=== PATIENT | male | born 1960 | race Caucasian/White ===

== ENCOUNTER → 2019-06-17 09:32 | Outpatient (CLI) | payer BC, SELFPAY ==
[2019-06-17 13:34] LABS: Alanine Aminotransferase 31 U/L (12-78); Albumin Level 4.1 gm/dL (3.4-5.0); Albumin/Globulin Ratio 1.3 (1.1-1.8); Alkaline Phosphatase 53 U/L (46-116); Anion Gap 12.9 mEq/L (5-15); Aspartate Amino Transferase 22 U/L (15-37); Bilirubin,Total 0.7 mg/dL (0.2-1.0); Blood Urea Nitrogen 23 mg/dL (7-18); Calcium 9.1 mg/dL (8.5-10.1); Carbon Dioxide 26 mmol/L (21.0-32.0); Chloride 103 mmol/L (98-107); Chol/HDL Ratio 3.4 (1-3.5); Cholesterol 202 mg/dL (140-200); Creatinine,Serum 0.78 mg/dL (0.70-1.30); Estimated Glomerular Filt Rate 103 ml/min (>60); GFR (African American) 124 ML/MIN (>60); Globulin 3.1 gm/dl (1.3-3.2); Glucose 80 mg/dL (74-106); HDL Cholesterol 60 mg/dL (27-67); LDL Cholesterol 131 mg/dL (0-130); Potassium 4.9 mmoL/L (3.5-5.1); Sodium 137 mmol/L (136-145); Total Protein,Serum 7.2 gm/dL (6.4-8.2); Triglycerides 57 mg/dL (30-200); VLDL Cholesterol 11 mg/dL (0-40)
== END ==
PROVIDERS: Visit Provider Nurse Practitioner Family
DX: Z00.00 Encounter for general adult medical examination without abnormal findings (principal); E78.5 Hyperlipidemia, unspecified
CPT/HCPCS: 36415; 80053; 80061

== ENCOUNTER → 2020-11-29 09:10 | Outpatient (CLI) | payer BC, SELFPAY ==
[2020-11-29 09:42] LABS: Basophils % 0.7 % (0.1-2.0); Eosinophils % 0.8 % (0.1-12.0); Hematocrit 49.1 % (42.0-52.0); Hemoglobin 16.4 g/dL (14.1-18.0); Lymphocytes # 1.9 K/mm3 (0.7-4.5); Lymphocytes % 37.4 % (10-50); Mean Corpuscular HGB Conc 33.5 g/dL (31.8-35.4); Mean Corpuscular Hemoglobin 30.7 pg (27.0-31.2); Mean Corpuscular Volume 91.6 fl (80-94); Mean Platelet Volume 9.3 fl (7.4-10.4); Monocytes # 0.4 K/mm3 (0.1-1.0); Monocytes % 7.2 % (1.7-9.3); Neutrophils # 2.8 K/mm3 (1.8-7.8); Neutrophils % 54.1 % (37.0-80.0); Platelet Count 185 K/mm3 (142-424); Red Blood Count 5.36 M/mm3 (4.60-6.20); Red Cell Distribution Width 13.7 % (11.5-17.5); White Blood Count 5.2 K/mm3 (4.8-10.8)
[2020-11-29 10:22] LABS: Alanine Aminotransferase 44 U/L (12-78); Albumin Level 4.8 g/dl (3.5-5.0); Albumin/Globulin Ratio 1.8 (1.1-1.8); Alkaline Phosphatase 62 U/L (38-126); Anion Gap 12.6 mEq/L (5-15); Aspartate Amino Transferase 38 U/L (17-59); Bilirubin,Total 0.7 mg/dl (0.2-1.3); Blood Urea Nitrogen 22 mg/dl (9-20); Carbon Dioxide 27 mmol/L (22.0-30.0); Chloride 104 mmol/L (98-107); Chol/HDL Ratio 2.6 (1-3.5); Cholesterol 136 mg/dl (140-200); Estimated Glomerular Filt Rate 99 ml/min (>60); GFR (African American) 120 ML/MIN (>60); Globulin 2.6 g/dL (1.3-3.2); Glucose 101 mg/dl (74-100); HDL Cholesterol 53 mg/dl (40-60); Potassium 5.6 mmoL/L (3.5-5.1); Sodium 138 mmol/L (136-145); Total Protein,Serum 7.4 g/dl (6.3-8.2); Triglycerides 65 mg/dl (30-150); VLDL Cholesterol 13 mg/dL (0-40)
[2020-11-29 10:53] LABS: Prostate Specific Ag Screen 1.1 ng/ml (0.0-4.0); Thyroid Stimulating Hormone 1.46 uIU/mL (0.465-4.68)
[2020-11-30 13:43] LABS: Testosterone,Total 220 ng/dL (264-916)
== END ==
PROVIDERS: Visit Provider Internal Medicine Adolescent Medicine
DX: E78.5 Hyperlipidemia, unspecified (principal); E29.1 Testicular hypofunction
CPT/HCPCS: 36415; 80053; 80061; 84403; 84443; 85025; G0103

== ENCOUNTER → 2020-12-17 14:01 | Outpatient (POV) | payer BC, SELFPAY | PROVIDERS: Visit Provider Dermatology | DX: Z00.00 Encounter for general adult medical examination without abnormal findings (principal) ==

== ENCOUNTER → 2021-01-11 09:30 | Outpatient (CLI) | payer BC, SELFPAY ==
[2021-01-11 12:12] LABS: Chloride 102 mmol/L (98-107); Potassium 5.4 mmoL/L (3.5-5.1); Sodium 137 mmol/L (136-145)
[2021-01-11 12:15] LABS: Anion Gap 13.4 mEq/L (5-15); Blood Urea Nitrogen 20 mg/dl (9-20); Calcium 9.9 mg/dl (8.4-10.2); Carbon Dioxide 27 mmol/L (22.0-30.0); Estimated Glomerular Filt Rate 87 ml/min (>60); GFR (African American) 105 ML/MIN (>60); Glucose 91 mg/dl (74-100)
== END ==
PROVIDERS: Visit Provider Internal Medicine Adolescent Medicine
DX: E87.5 Hyperkalemia (principal)
CPT/HCPCS: 36415; 80048

== ENCOUNTER → 2021-06-17 13:15 | Outpatient (POV) | payer BC, SELFPAY | PROVIDERS: Visit Provider Dermatology | DX: Z00.00 Encounter for general adult medical examination without abnormal findings (principal) ==

== ENCOUNTER → 2021-09-17 10:13 | Outpatient (CLI) | payer BC, SELFPAY | PROVIDERS: PCP Radiology Diagnostic Radiology; Visit Provider Nurse Practitioner | DX: U07.1 COVID-19 (principal) | CPT/HCPCS: C9803; U0003; U0005 ==

== ENCOUNTER → 2021-09-26 15:11 | Outpatient (CLI) | payer BC, SELFPAY | PROVIDERS: Visit Provider Nurse Practitioner | DX: U07.1 COVID-19 (principal) | CPT/HCPCS: C9803; U0003; U0005 ==

== ENCOUNTER → 2022-02-03 15:28 | Outpatient (POV) | payer BC, SELFPAY | PROVIDERS: Visit Provider Dermatology | DX: Z00.00 Encounter for general adult medical examination without abnormal findings (principal) ==

== ENCOUNTER 2022-05-27 13:39 | Emergency (ER) | payer BC, SELFPAY ==
[2022-05-27 13:46] VITALS: BP 186/117; PULSE 75; RESP 18; BMI 32.8
[2022-05-27 14:08] VITALS: BP 171/99; PULSE 75; RESP 18; TEMP 36.9; O2SAT 99; BMI 32.8
--- NOTE | 2022-05-27 14:15 | EXP.UTC ---
Discharge Plan Disposition Patient Disposition: Home, Self-Care Condition: Good Prescriptions Prescriptions: New methylprednisolone 4 mg Tablets,Dose Pack 4 mg PO DIRECTED Qty: 21 0RF diphenhydramine HCl 25 mg capsule 25 mg PO Q6HP PRN (Reason: Itching) Qty: 30 0RF triamcinolone acetonide 0.025 % cream 1 applic topical BID PRN (Reason: itching) Qty: 15 0RF Referrals Follow up/Referrals: Carlton Mcneil MD [Primary Care Provider] - See instructions Activity Restrictions/Add. Instructions Additional Instructions/Restrictions: Don't start the oral steroids until tomorrow. Don't put the topical steroids (triamcinolone) on your face or your groin. Follow up with your regular doctor. GO TO THE ER FOR ANY WORSENING SYMPTOMS OR CONCERNS Clinical Impressions Clinical Impression: Bee sting Qualifiers: Encounter type: initial encounter Injury intent: accidental or unintentional Qualified Code(s): T63.441A - Toxic effect of venom of bees, accidental (unintentional), initial encounter Instructions Patient Instructions: Insect Bites and Stings, DI for Insect Bites and Stings Discharge ED Provider: Tristan Dahl [facility] HPI General Stated complaint: reaction to bee sting Mode of Arrival: Ambulatory Source of Information: Patient Limitations: No Limitations Time Seen by Provider: 05/27/22 14:49 Description of Symptoms (Recalled from Triage Doc. by RN): Pt reports stung by a bee in R forearm lastnight. Swelling and redness noted. Pt reports has taken benadryl but no improvement in swelling in right arm. HEENT Symptoms (Recalled from RN notes): No Resp Symptoms (Recalled from RN notes): No Skin Symptoms (Recalled from RN notes): Yes MS Symptoms (Recalled from RN notes): No Functional Status (Recalled from RN notes): n/a History of Present Illness Provider Complaint: He is here because he was stung 3 times by wasps right before he came in. In the past when he was stung 5 times he had to have epinephrine administered due to allergic reaction. This time, he is having localized swelling and itching at the sites, but he denies any signs of allergic reaction. Related Data Previous Rx's Medication Instructions Recorded diphenhydramine HCl 25 mg capsule 25 mg PO Q6HP PRN Itching #30 caps 05/27/22 methylprednisolone 4 mg tablets in 4 mg PO DIRECTED #21 tabs 05/27/22 a dose pack triamcinolone acetonide 0.025 % 1 applic topical BID PRN itching 05/27/22 topical cream #15 grams Allergies Allergy/AdvReac Type Severity Reaction Status Date / Time No Known Allergies Allergy Verified 05/27/22 14:10 Worker's Comp Is this a Worker's Comp case?: No PFSH PFSH Social History Smoking Status: Never smoker alcohol intake: never current occupational status: employed Travel in the last 8 weeks: None ROS Obtained: Yes All systems reviewed & no additional complaints except as documented Constitutional Constitutional: Reports system reviewed and no additional complaints, except as documented, Denies chills and Denies fever(s) Eyes Eyes: Denies eye discharge ENT Ears, Nose, Mouth, and Throat: Denies dysphagia, Denies sore throat and Denies throat swelling Cardiovascular Cardiovascular: Denies chest pain and Denies dyspnea Respiratory Respiratory: Denies chest congestion, Denies cough and Denies dyspnea Gastrointestinal Gastrointestingal: Denies abdominal pain, constipation, diarrhea, dysphagia, nausea or vomiting Musculoskeletal Musculoskeletal: Denies arthralgias Integumentary/Breasts Skin/Breast: Reports redness and Reports rash Neurologic Neurologic: Denies paresthesias Allergic/Immunologic Allergic/Immunologic: Denies throat swelling Physical Exam General General appearance: alert and in no apparent distress Head Head exam: atraumatic, normocephalic and normal inspection Eye Eye exam: Present normal appearance, PERRL and EOMI ENT ENT
[2022-05-27 14:50] VITALS: BP 171/99; PULSE 75; RESP 18; TEMP 36.9
== END 2022-05-27 14:51 | disposition home or self-care (01) ==
LOC: ER 13:46 → UTC 13:47
PROVIDERS: Emergency Provider Nurse Practitioner Family; PCP Internal Medicine Adolescent Medicine
DX: T63.441A Toxic effect of venom of bees, accidental (unintentional), initial encounter (principal)
CPT/HCPCS: 96372; 99212; G0463

== ENCOUNTER 2022-10-03 01:35 | Observation (INO) | payer BC, SELFPAY ==
[2022-10-03] VITALS (8 sets, daily range): BP systolic 135–178; BP diastolic 78–101; PULSE 59–74; RESP 17–18; TEMP 36.6–36.8; O2SAT 94–98; BMI 33.6; BMI 35.8
--- NOTE | 2022-10-03 01:33 | ECG_ITS ---
APPROVED REPORT Exam: Resting ECG HR:72 bpm ECG Measurements Heart Rate 72 AXES LA 178 P 60 QRSd 126 QRS 23 QT 406 T 56 QTc 429 Conclusion SINUS RHYTHM Previously noted late r wave progression, but ow nl ecg UNCONFIRMED REPORT Electronically signed by : Carlton Mcneil MD 10/03/2022 16:20:27
--- NOTE | 2022-10-03 01:37 | PC.NURSE ---
Dr. Haines at
--- NOTE | 2022-10-03 01:50 | XR_ITS ---
PROCEDURE INFORMATION: Exam: XR Chest Exam date and time: 10/03/2022 1:51 AM Age: 62 years old Clinical indication: Pain; Chest pressure; Additional info: Cp TECHNIQUE: Imaging protocol: Radiologic exam of the chest. Views: 2 views. COMPARISON: CR CXR CHEST(2 VIEWS-NOT PORTABLE) 06/28/2016 9:05 PM FINDINGS: Lungs: Lung volumes are mildly diminished. There is minor stable elevation of the right hemidiaphragm. The lungs appear clear. No focal areas of consolidation. Pleural spaces: No pleural effusions or appreciable adenopathy. Negative for pneumothorax. Heart/Mediastinum: Cardiac silhouette and pulmonary vasculature are within range of normal. Calcified mediastinal lymph nodes indicate prior granulomatous disease. Bones/joints: There is no evidence of acute fracture. IMPRESSION: Negative for an acute cardiopulmonary abnormality. Stable chest radiograph.
[2022-10-03 01:58] LABS: Coronavirus 19, PCR Not Detected (NotDetected); Influenza A, PCR Not Detected (NotDetected); Influenza B, PCR Not Detected (NotDetected)
--- NOTE | 2022-10-03 01:59 | PC.NURSE ---
Pt gone to RAD via wheelchair
[2022-10-03 02:04] LABS: Basophils # 0.1 K/mm3 (0-0.2); Basophils % 1.4 % (0.1-2.0); Eosinophils # 0.1 K/mm3 (0.0-0.4); Eosinophils % 1.8 % (0.1-12.0); Hematocrit 46.2 % (42.0-52.0); Hemoglobin 15.2 g/dL (14.1-18.0); Lymphocytes # 2.5 K/mm3 (0.7-4.5); Lymphocytes % 35.4 % (10-50); Mean Corpuscular Hemoglobin 30.9 pg (27.0-31.2); Mean Corpuscular Volume 93.7 fl (80-94); Mean Platelet Volume 10.1 fl (7.4-10.4); Monocytes # 0.5 K/mm3 (0.1-1.0); Monocytes % 6.8 % (1.7-9.3); Neutrophils # 3.9 K/mm3 (1.8-7.8); Neutrophils % 54.6 % (37.0-80.0); Platelet Count 148 K/mm3 (142-424); Red Blood Count 4.93 M/mm3 (4.60-6.20); Red Cell Distribution Width 14.5 % (11.5-17.5); White Blood Count 7.1 K/mm3 (4.8-10.8)
[2022-10-03 02:13] LABS: Chloride 109 mmol/L (98-107)
[2022-10-03 02:14] LABS: Potassium 3.7 mmoL/L (3.5-5.1); Sodium 139 mmol/L (136-145)
[2022-10-03 02:17] LABS: Anion Gap 9.7 mEq/L (5-15); Blood Urea Nitrogen 24 mg/dl (9-20); Calcium 8.7 mg/dl (8.4-10.2); Carbon Dioxide 24 mmol/L (22.0-30.0); Creatinine Clearance Estimated 106 mL/min (50-200); Estimated Glomerular Filt Rate 86 ml/min (>60); GFR (African American) 104 ML/MIN (>60); Glucose 102 mg/dl (74-100)
--- NOTE | 2022-10-03 02:22 | [facility]H.EDCP ---
Discharge Plan Disposition Patient Disposition: Admitted as Observation Chief Complaint: Chest Pain Prescriptions Prescriptions: No Action atorvastatin 40 mg tablet 40 mg PO DAILY Label Comments: TAKE 1 TABLET BY MOUTH ONCE DAILY amlodipine 2.5 mg tablet 2.5 mg PO DAILY Label Comments: TAKE 1 TABLET BY MOUTH ONCE DAILY pantoprazole 40 mg tablet,delayed release (DR/EC) 40 mg PO DAILY Label Comments: TAKE 1 TABLET BY MOUTH ONCE DAILY lisinopril 30 mg tablet 90 mg PO DAILY Label Comments: TAKE 1 TABLET BY MOUTH ONCE DAILY Referrals Follow up/Referrals: Hector Nair MD [Primary Care Provider] - See instructions Clinical Impressions Clinical Impression: Chest pain, Angina at rest, Hypertension, Obesity (BMI 30-39.9) Discharge ED Provider: Corby Haines Chest Pain HPI General Chief Complaint: Chest Pain Stated Complaint: Chest Pain Time Seen by Provider: 10/03/22 02:22 Mode of Arrival: Ambulatory Source of Information: Patient, Spouse and Medical Record Limitations: No Limitations Description of Symptoms (Recalled from ER Triage Doc. by RN): pt reports that he has had intermitent chest tightness for the past 2 days. pt reports that it has been coming on more frequantly and lasting longer. the pt has a family hx of cardiac issures but states he has had none himself History of Present Illness HPI narrative: pt with progressive chest pain over the last 2 days with hx of htn and fh of ht dis complaint: chest pain indicative of cardiac Onset (ago): day(s) Duration: intermittent Activity at onset: during rest Pain location: left chest Severity: moderate Quality: tightness Risk Factors for CAD: Hypertension and Family Hx of CAD Treatments prior to or on arrival for Cardiac Chest Pain: none SUMEET Score for Non-Stemi Age of Patient: 60-69 years old Heart Rate: 50-69 bpm Systolic Blood Pressure: 160-199 mmHg Serum Creatinine: 0.80-1.19 mg/dl CHF [place] Class: I-No CHF Other Risk Factors: None Non-Stemi Risk Score: 78 Risk Stratification: 1-108 = Low Risk Related Data Home Medications Medication Instructions Recorded Confirmed amlodipine 2.5 mg tablet 2.5 mg PO DAILY Hypertension 10/03/22 10/03/22 atorvastatin 40 mg tablet 40 mg PO DAILY Cholesterol 10/03/22 10/03/22 lisinopril 30 mg tablet 90 mg PO DAILY Hypertension 10/03/22 10/03/22 pantoprazole 40 mg tablet,delayed 40 mg PO DAILY . 10/03/22 10/03/22 release Allergies Allergy/AdvReac Type Severity Reaction Status Date / Time No Known Allergies Allergy Verified 05/27/22 14:10 [facility] Disclaimer: The information contained in this section may have been updated after the patient was seen, as this information can be updated by other users. Social History (Updated 05/28/22 @ 22:42 by Tristan Dahl APRN) Smoking Status: Former smoker alcohol intake: never current occupational status: employed Travel in the last 8 weeks: None ROS Obtained: Yes All systems reviewed & no additional complaints except as documented Physical Exam General General appearance: alert Head Head exam: normocephalic Eye Eye exam: Present PERRL and EOMI ENT ENT exam: Present mucous membranes moist Neck Neck exam: Present trachea midline Respiratory Respiratory exam: Present normal lung sounds bilaterally; Absent respiratory distress Cardiovascular Cardiovascular exam: Present regular rate and systolic murmur Abdominal Exam Abdominal exam: Present soft Extremities Exam Extremities exam: Present full ROM Neurological Exam Neurological exam: Present alert, oriented X3 and CN II-XII intact Psychiatric Psychiatric exam: Present normal affect Skin Skin exam: Absent rash Medical Decision Making Medical Records Medical records reviewed: Yes I reviewed the patient's medical records. Thien Inquiry Pt receiving controlled substance: No Vital Signs: 10/03/22 01:35 10/03/22 02:14 Temperature 98
[2022-10-03 02:35] LABS: Troponin I < 0.01 ng/ml (0.00-0.034)
--- NOTE | 2022-10-03 02:37 | PC.NURSE ---
paged dr ramirez @ this time
--- NOTE | 2022-10-03 02:38 | PC.NURSE ---
naya on phone with dr ramirez
--- NOTE | 2022-10-03 02:40 | PC.NURSE ---
notified scalehouse attendant about pt admission
--- NOTE | 2022-10-03 02:55 | PC.NURSE ---
report called to Kailyn JESSICA. notified to Stay on trop schedule @5am and 8am
--- NOTE | 2022-10-03 03:31 | PC.NURSE ---
Pt arriced to floor via wheelchair @ 0321.
[2022-10-03 05:13] LABS: Basophils # 0.1 K/mm3 (0-0.2); Basophils % 0.8 % (0.1-2.0); Eosinophils # 0.1 K/mm3 (0.0-0.4); Eosinophils % 1.3 % (0.1-12.0); Hematocrit 44.3 % (42.0-52.0); Hemoglobin 14.8 g/dL (14.1-18.0); Lymphocytes # 1.9 K/mm3 (0.7-4.5); Lymphocytes % 27.4 % (10-50); Mean Corpuscular HGB Conc 33.5 g/dL (31.8-35.4); Mean Corpuscular Hemoglobin 31.1 pg (27.0-31.2); Mean Platelet Volume 10.8 fl (7.4-10.4); Monocytes # 0.4 K/mm3 (0.1-1.0); Monocytes % 5.5 % (1.7-9.3); Neutrophils # 4.6 K/mm3 (1.8-7.8); Platelet Count 135 K/mm3 (142-424); Red Blood Count 4.76 M/mm3 (4.60-6.20); Red Cell Distribution Width 14.4 % (11.5-17.5)
[2022-10-03 05:18] LABS: Chloride 110 mmol/L (98-107); Potassium 4.3 mmoL/L (3.5-5.1); Sodium 138 mmol/L (136-145)
[2022-10-03 05:21] LABS: Anion Gap 8.3 mEq/L (5-15); Blood Urea Nitrogen 23 mg/dl (9-20); Carbon Dioxide 24 mmol/L (22.0-30.0); Cholesterol 131 mg/dl (140-200); Creatinine Clearance Estimated 127 mL/min (50-200); Estimated Glomerular Filt Rate 99 ml/min (>60); GFR (African American) 119 ML/MIN (>60); Triglycerides 48 mg/dl (30-150); VLDL Cholesterol 10 mg/dL (0-40)
[2022-10-03 05:22] LABS: Calcium 8.6 mg/dl (8.4-10.2); Chol/HDL Ratio 2.6 (1-3.5); Glucose 105 mg/dl (74-100); HDL Cholesterol 50 mg/dl (40-60)
[2022-10-03 05:33] LABS: Direct LDL Cholesterol 52.62 mg/dL (100-129)
[2022-10-03 05:34] LABS: Troponin I < 0.01 ng/ml (0.00-0.034)
--- NOTE | 2022-10-03 08:35 | EXP.HPDC ---
General Admission date:: 10/03/22 Discharge date: 10/03/22 *Admission Date: 10/03/22 *Chief complaint: Chest pain *History of present illness: Mr. Yost is a 62 year old patient of [facility] who presented to [facility] ER last night complaining of chest pain/pressure off and on for the past few weeks. Symptoms are not related to exertion. He denies shortness of breath and lower extremity edema. He has noted his blood pressure has been high several times over the past few weeks. He currently takes Lisinopril and Amlodipine and has been compliant with his medication. He also has a history of hyperlipidemia and GERD. [facility] Disclaimer: The information contained in this section may have been updated after the patient was seen, as this information can be updated by other users. Medical History (Updated 10/03/22 @ 08:43 by Hector Nair MD) Allergic rhinitis Carpal tunnel syndrome Deviated septum GERD (gastroesophageal reflux disease) Hiatal hernia History of COVID-19 Hyperlipidemia Hypertension Kidney stones Testosterone deficiency Surgical History (Updated 10/03/22 @ 08:44 by Hector Nair MD) H/O colonoscopy Family History (Updated 10/03/22 @ 03:38 by Kailyn Lin RN) Family history of acute heart failure Family history of stroke Family history of hypertension Family history of diabetes mellitus type II Family history of myocardial infarction Family history of hyperlipidemia Social History (Updated 10/03/22 @ 03:38 by Kailyn Lin, RN) Smoking Status: Former smoker alcohol intake: never current occupational status: employed Travel in the last 8 weeks: None Review of Systems Constitutional Constitutional: Denies chills and Denies fever(s) Eyes Eyes: Denies change in vision ENT Ears, Nose, Mouth, and Throat: Denies dizziness and Denies dysphagia *Cardiovascular Cardiovascular: Reports as per HPI *Respiratory Respiratory: Denies cough *Gastrointestinal Gastrointestinal: Denies constipation and Denies dysphagia *Genitourinary Genitourinary: Denies difficulty urinating *Musculoskeletal Musculoskeletal: Denies arthralgias Integumentary/Breasts Skin/Breast: Denies rash *Neurologic Neurologic: Denies dizziness Exam Data for Last 24 hours Vital signs and Labs for Last 24 Hours: Temp Pulse Resp BP Pulse Ox 98.0 F 59 L 18 145/80 H 96 10/03/22 07:10 10/03/22 07:10 10/03/22 07:10 10/03/22 07:10 10/03/22 07:10 Laboratory Results - last 24 hr 10/03/22 01:44: SARS-CoV-2 (PCR) Not detected, Influenza A Untype (PCR) Not detected, Influenza Type B (PCR) Not detected 10/03/22 01:58: WBC 7.1, RBC 4.93, Hgb 15.2, Hct 46.2, MCV 93.7, MCH 30.9, MCHC 33.0, RDW 14.5, Plt Count 148, MPV 10.1, Neut % (Auto) 54.6, Lymph % (Auto) 35.4, [place] % (Auto) 6.8, Eos % (Auto) 1.8, Baso % (Auto) 1.4, Neut # (Auto) 3.9, Lymph # (Auto) 2.5, [place] # (Auto) 0.5, Eos # (Auto) 0.1, Baso # (Auto) 0.1 10/03/22 01:58: Sodium 139, Potassium 3.7, Chloride 109 H, Carbon Dioxide 24, Anion Gap 9.7, BUN 24 H, Creatinine 0.90, Estimated Creat Clear 106, Estimated GFR 86, Est GFR ( Amer) 104, Glucose 102 H, Calcium 8.7, Troponin I < 0.01 10/03/22 05:00: Sodium 138, Potassium 4.3, Chloride 110 H, Carbon Dioxide 24, Anion Gap 8.3, BUN 23 H, Creatinine 0.80, Estimated Creat Clear 127, Estimated GFR 99, Est GFR ( Amer) 119, Glucose 105 H, Calcium 8.6, Troponin I < 0.01, Triglycerides 48, Cholesterol 131 L, LDL Cholesterol Direct 52.62 L, VLDL Cholesterol 10, HDL Cholesterol 50, Cholesterol/HDL Ratio 2.6 10/03/22 05:00: WBC 7.0, RBC 4.76, Hgb 14.8, Hct 44.3, MCV 93.0, MCH 31.1, MCHC 33.5, RDW 14.4, Plt Count 135 L, MPV 10.8 H, Neut % (Auto) 65.0, Lymph % (Auto) 27.4, [place] % (Auto) 5.5, Eos % (Auto) 1.3, Baso % (Auto) 0.8, Neut # (Auto) 4.6, Lymph # (Auto) 1.9, [place] # (Auto) 0.4, Eos # (Auto) 0.1, Baso # (Auto) 0.1 I & O for Last 24 hours: Intake & Output 09/30/22 10/01/22 10/02/22 10/03/22 23:59 23:59
[2022-10-03 08:41] LABS: Troponin I < 0.01 ng/ml (0.00-0.034)
--- NOTE | 2022-10-03 09:55 | PC.NURSE ---
pt ambulated in hallway with tele monitoring in place. he did not require assistance. denied chest pain/tightness no c/o shortness of breath no changes noted on tele monitoring during or immediately after ambulation.
--- NOTE | 2022-10-05 13:02 | CARE MANAGER ---
Contacted patient related to hospital discharge. He did not have any changes to his medications or new prescriptions. He has made a follow up appointment with Dr. Nair and denies any questions or concerns. ARACELY Lazo
== END 2022-10-03 13:00 | disposition home or self-care (01) ==
LOC: ER 02:43 → 2ND 04:10
PROVIDERS: Admitting Provider Family Medicine; Emergency Provider Emergency Medicine; PCP Family Medicine; Visit Provider Family Medicine
DX: R07.9 Chest pain, unspecified (principal); I10 Essential (primary) hypertension; K21.9 Gastro-esophageal reflux disease without esophagitis; E78.5 Hyperlipidemia, unspecified; Z82.49 Family history of ischemic heart disease and other diseases of the circulatory system; Z86.16 Personal history of COVID-19; Z79.899 Other long term (current) drug therapy
CPT/HCPCS: 36415; 71046; 80048; 80061; 84484; 85025; 93005; 99285; C9803; G0378; U0003; U0005

== ENCOUNTER → 2022-10-21 15:15 | Outpatient (CLI) | payer SELFPAY ==
--- NOTE | 2022-10-21 15:21 | CT_ITS ---
FINAL REPORT CLINICAL HISTORY: SCREENING FINDINGS: CT CORONARY CALCIUM SCORE W/O TECHNIQUE: Thin-section axial images were obtained through the heart and coronary arteries per CT coronary calcium score protocol. This study was performed with techniques to keep radiation doses as low as reasonably achievable (ALARA). Individualized dose reduction techniques using automated exposure control or adjustment of mA and/or kV according to the patient's size were employed. FINDINGS: On the axial images, there is calcification predominantly within the left anterior descending artery and circumflex. This gives a coronary artery calcium score of 52 based on the Agatston scale. This coronary artery calcium score places the patient within the if 36th percentile based on age and gender. The heart size is normal. There is no pleural or pericardial effusion. Limited evaluation of the lungs reveal no suspicious nodule. IMPRESSION: Coronary artery calcium score 52 based on the Agatston scale placing the patient within the 36th percentile based on age and gender. Reviewed, Interpreted and Dictated by Cayden Bonilla MD Transcribed by Yomaira Nixon Authenticated and [facility]
== END ==
PROVIDERS: PCP Family Medicine; Visit Provider Family Medicine
DX: Z13.6 Encounter for screening for cardiovascular disorders (principal)
CPT/HCPCS: 75571

== ENCOUNTER 2023-09-13 10:26 | Emergency (ER) | payer BC, SELFPAY ==
[2023-09-13 11:30] VITALS: BP 167/85; PULSE 74; RESP 19; TEMP 36.7; O2SAT 99; BMI 35.3
--- NOTE | 2023-09-13 11:38 | ED_ITS ---
Discharge Plan Disposition Patient Disposition: Home, Self-Care Condition: Good Prescriptions Prescriptions: New benzonatate 100 mg capsule 100 mg PO TID PRN (Reason: cough) Qty: 30 0RF methylprednisolone [Medrol (Chandler)] 4 mg tablets,dose pack See Rx Instructions .Route .COMPLEX 6 Days Qty: 21 0RF Rx Instructions: taper pack; amoxicillin-pot clavulanate 875-125 mg Tablet 1 tab PO Q12H Qty: 20 0RF No Action cetirizine 10 mg tablet 10 mg PO DAILY Patient Comments: TAKE 1 TABLET BY MOUTH ONCE DAILY lisinopril 10 mg tablet 10 mg PO DAILY Patient Comments: TAKE 1 TABLET BY MOUTH AT BEDTIME atorvastatin 40 mg tablet 40 mg PO HS Patient Comments: TAKE 1 TABLET BY MOUTH ONCE DAILY amlodipine 2.5 mg tablet 2.5 mg PO DAILY Patient Comments: TAKE 1 TABLET BY MOUTH ONCE DAILY pantoprazole 40 mg tablet,delayed release (DR/EC) 40 mg PO DAILY Patient Comments: TAKE 1 TABLET BY MOUTH ONCE DAILY lisinopril 30 mg tablet 30 mg PO DAILY Patient Comments: TAKE 1 TABLET BY MOUTH ONCE DAILY Referrals Follow up/Referrals: Hector Nair MD [Primary Care Provider] - See instructions Activity Restrictions/Add. Instructions Additional Instructions/Restrictions: *Monitor Temp, Over the counter Motrin or Tylenol as directed/as needed Tylenol every 4 hours and Motrin every 6 hours (as long as your family doctor has told you that you can take it) for fever or pain. and straight to ER if unable to lower temp less than 101.0 after medication given *Warm salt water gargles may help to soothe the throat *Throat Lozenges? *Warm fluids like tea with honey may help to soothe the throat? *Sleep elevated *Humidifier/Vaporizer Take medication as prescribed Follow up IMMEDIATELY for new or worsening symptoms or no Noticeable improvement over the next 48-72 hours. 911 for difficulty breathing or swallo wing Clinical Impressions Clinical Impression: Sinusitis Qualifiers: Sinusitis location: unspecified location Chronicity: unspecified Qualified Code(s): J32.9 - Chronic sinusitis, unspecified Instructions Patient Instructions: Sinusitis, DI for Sinusitis Discharge ED Provider: Edel Watts [facility] HPI General Stated complaint: cough, congestion, ears popping Mode of Arrival: Ambulatory Source of Information: Patient Limitations: No Limitations Time Seen by Provider: 09/13/23 11:38 Description of Symptoms (Recalled from Triage Doc. by RN): PATIENT C/O DRY COUGH, CONGESTION, EARS POPPING AND NASAL CONGESTION X 1 WEEK HEENT Symptoms (Recalled from RN notes): Yes Resp Symptoms (Recalled from RN notes): Yes Skin Symptoms (Recalled from RN notes): No MS Symptoms (Recalled from RN notes): No Functional Status (Recalled from RN notes): WNL History of Present Illness Provider Complaint: Patient states that he thinks he has a sinus infection States that he has been having sinus pain and pressure, scratchy throat, drainage in the back of his throat, cough and ears popping like he has fluid in it so he came in to get checked Related Data Home Medications Medication Instructions Recorded Confirmed amlodipine 2.5 mg tablet 2.5 mg PO DAILY Hypertension 10/03/22 09/13/23 atorvastatin 40 mg tablet 40 mg PO HS Cholesterol 10/03/22 09/13/23 lisinopril 30 mg tablet 30 mg PO DAILY Hypertension 10/03/22 09/13/23 pantoprazole 40 mg tablet,delayed 40 mg PO DAILY 10/03/22 09/13/23 release cetirizine 10 mg tablet 10 mg PO DAILY 09/13/23 09/13/23 lisinopril 10 mg tablet 10 mg PO DAILY 09/13/23 09/13/23 Previous Rx's Medication Instructions Recorded amoxicillin 875 mg-potassium 1 tab PO Q12H #20 tabs 09/13/23 clavulanate 125 mg tablet benzonatate 100 mg capsule 100 mg PO TID PRN cough #30 caps 09/13/23 methylprednisolone 4 mg tablets in See Rx Instructions .Route 09/13/23 a dose pack (Medrol (Chandler)) .COMPLEX 6 days #21 tabs Allergies Allergy/AdvReac Type Severity Reaction Status Date / Time No Known Allergies Allergy Verified 05/27/22 14:10 Worker's Comp Is this a Worker's Comp case?: No [facility] Disclaimer: The information contained in this section may have been updated after the patient was seen, as this information can be updated by other users. Medical History (Updated 01/01/24 @ 11:43 by Edel Watts APRN) Allergic rhinitis Carpal tunnel syndrome Deviated septum GERD (gastroesophageal reflux disease) Hiatal hernia History of COVID-19 Hyperlipidemia Hypertension Kidney stones Testosterone deficiency Surgical History (Updated 10/03/22 @ 08:44 by Hector Nair MD) H/O colonoscopy Family History (Updated 10/03/22 @ 03:38 by Kailyn Lin, RN) Other Family history of acute heart failure Family history of diabetes mellitus type II Family history of hyperlipidemia Family history of hypertension Family history of myocardial infarction Family history of stroke Social History (Updated 10/03/22 @ 03:38 by Kailyn Lin, RN) Smoking Status: Former smoker alcohol intake: never current occupational status: employed Travel in the last 8 weeks: None ROS Obtained: Yes All systems reviewed & no additional complaints except as documented and Yes Systems reviewed as appropriate & no additional complaints except as documented Constitutional Constitutional: Reports system reviewed and no additional complaints, except as documented, Reports as per HPI and Reports headache(s) ENT Ears, Nose, Mouth, and Throat: Reports system reviewed and no additional complaints, except as documented, Reports as per HPI, Reports otalgia, Reports headache(s), Reports sinus pain and Reports sinus pressure Cardiovascular Cardiovascular: Reports system reviewed and no additional complaints, except as documented and Reports as per HPI Respiratory Respiratory: Reports system reviewed and no additional complaints, except as documented, Reports as per HPI, Denies shortness of breath, Denies chest congestion, Reports cough and Denies wheezing Gastrointestinal Gastrointestingal: Reports system reviewed and no additional complaints, except as documented and as per HPI Neurologic Neurologic: Reports headache(s) Allergic/Immunologic Allergic/Immunologic: Denies wheezing Physical Exam General General appearance: alert and in no apparent distress ENT ENT exam: Present mucous membranes moist Expanded ENT Exam TM/Canal exam: Bilateral TM: bulging Nose exam: Present sinus tenderness Throat exam: Present other (Pharyngeal erythema noted with PND) Chest Chest inspection: Present normal inspection and symmetric chest wall rise Respiratory Respiratory exam: Present normal lung sounds bilaterally; Absent respiratory distress or wheezes Cardiovascular Cardiovascular exam: Present regular rate, normal rhythm and normal heart sounds Abdominal Exam Abdominal exam: Present soft and normal bowel sounds; Absent distention or tenderness Neurological Exam Neurological exam: Present alert, oriented X3 and normal gait Medical Decision Making Thien Inquiry Pt receiving controlled substance: No Thien was queried for this patient: No Vital Signs: 09/13/23 11:30 Temperature 98.0 F Temperature Source Oral Pulse Rate [Left Brachial] 74 Respiratory Rate 19 Blood Pressure [Left Arm] 167/85 H Blood Pressure Mean [Left Arm] 112 Blood Pressure Source [Left Arm] Automatic Cuff Blood Pressure Position [Left Arm] Sitting 02 Sat by Pulse Oximetry 99 Oxygen Delivery Method Room Air
[2023-09-13 12:00] VITALS: BP 167/85; PULSE 74; RESP 19; TEMP 36.7; O2SAT 99
== END 2023-09-13 12:02 | disposition home or self-care (01) ==
PROVIDERS: Emergency Provider Nurse Practitioner; PCP Family Medicine
DX: J01.90 Acute sinusitis, unspecified (principal); R05.9 Cough, unspecified; H92.03 Otalgia, bilateral; R07.0 Pain in throat; R09.82 Postnasal drip; K21.9 Gastro-esophageal reflux disease without esophagitis; I10 Essential (primary) hypertension; E78.5 Hyperlipidemia, unspecified; J30.9 Allergic rhinitis, unspecified
CPT/HCPCS: 99212; 99214; G0463

== ENCOUNTER 2024-09-10 08:00 | Emergency (ER) | payer BC, SELFPAY ==
[2024-09-10 08:09] VITALS: BP 153/97; PULSE 68; RESP 18; TEMP 37.1; O2SAT 99; BMI 36.5
--- NOTE | 2024-09-10 08:46 | ED_ITS ---
Discharge Plan Disposition Patient Disposition: Home, Self-Care Condition: Good Prescriptions Prescriptions: New prednisone 20 mg tablet 20 mg PO BID 4 Days Qty: 8 0RF benzonatate 100 mg capsule 100 mg PO TIDP PRN (Reason: Cough) Qty: 30 0RF cefdinir 300 mg capsule 300 mg PO BID Qty: 20 0RF No Action amlodipine 5 mg tablet 5 mg PO DAILY Patient Comments: TAKE 1 TABLET BY MOUTH ONCE DAILY FOR 90 DAYS hydrochlorothiazide 12.5 mg capsule 12.5 mg PO DAILY Patient Comments: TAKE 1 CAPSULE BY MOUTH ONCE DAILY IN THE MORNING FOR 90 DAYS cetirizine 10 mg tablet 10 mg PO DAILY Patient Comments: TAKE 1 TABLET BY MOUTH ONCE DAILY lisinopril 10 mg tablet 10 mg PO DAILY Patient Comments: TAKE 1 TABLET BY MOUTH AT BEDTIME atorvastatin 40 mg tablet 40 mg PO HS Patient Comments: TAKE 1 TABLET BY MOUTH ONCE DAILY pantoprazole 40 mg tablet,delayed release (DR/EC) 40 mg PO DAILY Patient Comments: TAKE 1 TABLET BY MOUTH ONCE DAILY lisinopril 30 mg tablet 30 mg PO DAILY Patient Comments: TAKE 1 TABLET BY MOUTH ONCE DAILY Referrals Follow up/Referrals: Hector Nair MD [Primary Care Provider] - See instructions Activity Restrictions/Add. Instructions Additional Instructions/Restrictions: Drink plenty of fluids. Take tylenol for pain or fever. Take the medications as directed. Follow up with your regular doctor. GO TO THE ER FOR ANY WORSENING SYMPTOMS Clinical Impressions Clinical Impression: Acute bronchitis Instructions Patient Instructions: DI for Acute Bronchitis Print Language Print Language: Mongolian Discharge ED Provider: Tristan Dahl [facility] General Stated complaint: cough lung burning feeling Mode of Arrival: Ambulatory Source of Information: Patient Time Seen by Provider: 09/10/24 08:34 Description of Symptoms (Recalled from Triage Doc. by RN): cough with burning sensation in chest, fever a few days ago HEENT Symptoms (Recalled from RN notes): No Resp Symptoms (Recalled from RN notes): Yes Skin Symptoms (Recalled from RN notes): No MS Symptoms (Recalled from RN notes): No Functional Status (Recalled from RN notes): wnl Related Data Home Medications ?Medication ?Instructions ?Recorded ?Confirmed atorvastatin 40 mg tablet 40 mg PO HS Cholesterol 10/03/22 09/10/24 lisinopril 30 mg tablet 30 mg PO DAILY Hypertension 10/03/22 09/10/24 pantoprazole 40 mg tablet,delayed 40 mg PO DAILY 10/03/22 09/10/24 release cetirizine 10 mg tablet 10 mg PO DAILY 09/13/23 09/10/24 lisinopril 10 mg tablet 10 mg PO DAILY 09/13/23 09/13/23 amlodipine 5 mg tablet 5 mg PO DAILY 03/30/24 09/10/24 hydrochlorothiazide 12.5 mg capsule 12.5 mg PO DAILY 03/30/24 09/10/24 Previous Rx's ?Medication ?Instructions ?Recorded benzonatate 100 mg capsule 100 mg PO TIDP PRN Cough #30 caps 09/10/24 cefdinir 300 mg capsule 300 mg PO BID #20 caps 09/10/24 prednisone 20 mg tablet 20 mg PO BID 4 days #8 tabs 09/10/24 Allergies Allergy/AdvReac Type Severity Reaction Status Date / Time No Known Allergies Allergy Verified 03/30/24 09:05 Worker's Comp Is this a Worker's Comp case?: No [facility] Disclaimer: The information contained in this section may have been updated after the patient was seen, as this information can be updated by other users. Medical History (Updated 09/10/24 @ 09:01 by Tristan Dahl APRN) Testosterone deficiency Kidney stones Allergic rhinitis GERD (gastroesophageal reflux disease) Hypertension History of COVID-19 Carpal tunnel syndrome Hiatal hernia Hyperlipidemia Deviated septum Surgical History (Updated 03/30/24 @ 09:05 by Jacque Harden) History of carpal tunnel repair H/O colonoscopy Family History Other Family history of acute heart failure Family history of diabetes mellitus type II Family history of hyperlipidemia Family history of hypertension Family history of myocardial infarction Family history of stroke Social History Smoking Status: Former smoker alcohol intake: never current occupational status: employed Travel in the last 8 weeks: None Have you lived/traveled outside US in past 30 days?: No Contact w/someone who lives/traveled outside US past 30 days?: No Exposure to someone with infectious disease in past 14 days?: No Do you have a fever (greater than 100.4 F or 38 C)?: No Have you tested positive for COVID-19: No Exposed to someone with COVID-19 in past 14 days?: No Do you have a sore throat?: No Do you have a cough?: Yes Do you have any weakness?: No Do you have any diarrhea?: No Are you experiencing any unusual bleeding?: No Do you have any muscle aches/pain?: No Do you have any abdominal pain?: No Are you experiencing loss of taste or smell?: No ROS Obtained: Yes All systems reviewed & no additional complaints except as documented Constitutional Constitutional: Reports poor appetite Eyes Eyes: Reports system reviewed and no additional complaints, except as documented ENT Ears, Nose, Mouth, and Throat: Reports as per HPI Cardiovascular Cardiovascular: Reports system reviewed and no additional complaints, except as documented and Denies chest pain Respiratory Respiratory: Denies shortness of breath, Reports chest congestion, Reports cough, Denies stridor and Denies wheezing Gastrointestinal Gastrointestingal: Reports system reviewed and no additional complaints, except as documented; Denies abdominal pain, diarrhea or vomiting Musculoskeletal Musculoskeletal: Reports system reviewed and no additional complaints, except as documented and Denies arthralgias Integumentary/Breasts Skin/Breast: Reports system reviewed and no additional complaints, except as documented and Denies rash Neurologic Neurologic: Denies paresthesias Allergic/Immunologic Allergic/Immunologic: Denies wheezing Physical Exam General General appearance: alert and in no apparent distress Eye Eye exam: Present normal appearance, PERRL and EOMI ENT ENT exam: Present mucous membranes moist and normal external ear exam Expanded ENT Exam External ear exam: Present normal external inspection TM/Canal exam: Bilateral TM: erythema and bulging Nose exam: Absent sinus tenderness Nasal speculum exam: Bilateral: normal Mouth exam: Present normal external inspection; Absent drooling Teeth exam: Present normal inspection Throat exam: Present tonsillar erythema and tonsillomegaly Neck Neck exam: Present normal inspection, full ROM and trachea midline; Absent tenderness, lymphadenopathy or thyromegaly Chest Chest inspection: Present normal inspection and symmetric chest wall rise; Absent tenderness or rash Respiratory Respiratory exam: Present normal lung sounds bilaterally; Absent respiratory distress, wheezes, stridor or accessory muscle use Cardiovascular Cardiovascular exam: Present regular rate, normal rhythm and normal heart sounds Abdominal Exam Abdominal exam: Present soft; Absent distention, tenderness, guarding, rebound or rigidity Extremities Exam Extremities exam: Present normal inspection, full ROM and normal capillary refill; Absent tenderness or calf tenderness Back Exam Back exam: Present normal inspection and full ROM; Absent tenderness Neurological Exam Neurological exam: Present alert and oriented X3 Psychiatric Psychiatric exam: Present normal affect and normal mood Skin Skin exam: Present warm, dry, intact and normal color Lymphatic Lymphatic Findings: no adenopathy Medical Decision Making Medical Records Medical records reviewed: No I reviewed the patient's medical records. Screening: Per USPSTF and CDC recommendations, given the prevalence of disease in our region, it is our hospital?s policy to screen for HIV and viral Hepatitis for all patients aged 18 and over and those with ongoing risk factors. Thien Inquiry Pt receiving controlled substance: No Vital Signs: 09/10/24 08:09 Temperature 98.8 F Temperature Source Oral Pulse Rate [Left Radial] 68 Respiratory Rate 18 Blood Pressure [Left Arm] 153/97 H Blood Pressure Mean [Left Arm] 115 02 Sat by Pulse Oximetry 99 Lab Data Lab results reviewed: Yes I reviewed the patient's lab results.
[2024-09-10 09:01] LABS: UTC Strep Screen (Rapid) Negative (Negative)
[2024-09-10 09:06] VITALS: BP 153/97; PULSE 68; RESP 18; TEMP 37.1
== END 2024-09-10 09:08 | disposition home or self-care (01) ==
PROVIDERS: Emergency Provider Nurse Practitioner Family; PCP Family Medicine
DX: J40 Bronchitis, not specified as acute or chronic (principal); R50.9 Fever, unspecified; R05.9 Cough, unspecified; R07.89 Other chest pain
CPT/HCPCS: 87880; 99212; G0381

== ENCOUNTER 2024-12-01 08:59 | Outpatient (CLI) | payer BC, SELFPAY ==
--- NOTE | 2024-12-01 08:59 | CT_ITS ---
APPROVED REPORT Dentistry Teacher: CLINICAL INDICATION Chest Pain TECHNIQUE Image Acquisition: A 128 slice MDCT scanner (Recommendoa View) was used for data acquisition. A noncontrast coronary calcium scan was performed. A CT attenuation threshold of 130 Hounsfield units (HU) was used for the detection of calcium in contiguous voxels of 1 sq mm in area to be counted as individual lesions. Bolus tracking in the ascending aorta with a threshold of 180 HU was performed. Immediately afterwards, ECG synchronized cardiac CT was then performed from the cardiac base to apex using retrospective gating with ECG tube current modulation. A total of 85 mL of Isovue 370 mg/mL contrast medium was administered at 5 mL/sec followed by a saline flush using a biphasic injection protocol. A tube voltage of 120 KVp was used. The patient received the following medications prior to the cardiac CT. 0.8 mg of sublingual nitroglycerin The average heart rate at the time of acquisition was 59 bpm and regular. Image Reconstruction Transaxial images were reconstructed at 0.67 mm slide thickness. Data was reviewed interactively on an advanced workstation capable of 2 and 3-dimensional displays in all conventional reconstruction formats, including multiplanar reformations, maximum intensity projections, curved multiplanar reformations, and volume rendered reconstructions. When applicable, selected routine images describing the relevant coronary anatomy and pathology were saved and sent to PACS. Complications None Technical Quality Overall image quality was good. Coronary artery opacification was adequate. Total DLP (Dose-Length Product) is 1839.6 mGy-cm. The reported value represents the total of one or more individual components during the CT acquisition of this date and at this time, and as such, the same value may appear in more than one CT report depending on the interpreting/reporting physicians. COMPARISON None FINDINGS CT Coronary Calcium Scoring LMA (Left Main Artery) = 19 LAD (Left Anterior Descending) = 68 LCX (Left Coronary Circumflex) = 16 RCA (Right Coronary Artery) = 49 Total Calcium Score = 152 using the AJ-130 method. The observed calcium score of 152 is at 69th percentile for subjects of the same age, sex, and race/ethnicity. The interpretation of the calcium heart score is based on the following continuum*: 0 = no calcified plaque detected (risk of coronary artery disease is very low ??? less than 5%) 1-10 = calcium detected in extremely minimal levels (risk of coronary diseases is still low ??? less than 10%) 11-100 = mild levels of plaque detected with certainty (mild or minimal narrowing of heart arteries is likely) 101-400 = definite,at least moderate levels of plaque detected (relatively high risk of a heart attack within 3-5 years) >401-999 = extensive levels of plaque detected (high risk of heart attack, high levels of vascular disease are present, high likelihood of at least one significant coronary narrowing) *The calcium heart score quantifies the burden of coronary calcification/plaque in the coronary arteries. The calcium heart score is not able to evaluate the presence or burden of non-calcified (i.e. soft) plaque. Coronary CT Angiography The coronary arterial system is left dominant. Quantitative Stenosis Grading: Left Main (LM): The left main originates normally from the left sinus of Valsalva. The LM bifurcates into the left anterior descending artery and left circumflex artery. There is mixed calcified/noncalcified plaque in the distal LM segment with < 25% luminal stenosis. Left Anterior Descending (LAD) and Diagonal Branches: The LAD gives off 2 diagonal branch(es). There is mixed calcified/noncalcified plaque in the proximal and mid LAD segments, with presence of a noncalcified plaque in the mid LAD segment up to 50-70% luminal stenosis immediately distal to the first diagonal branch. There is no evidence of LAD-myocardial bridge. Left Circumflex (LCX) and Obtuse Marginals (OM): The LCX gives off 1 Obtuse Marginal (OM) branch(es). There is mixed calcified/noncalcified plaque in the proximal LCx, with < 25% luminal stenosis. Right Coronary Artery (RCA): The RCA originates normally from the right sinus of Valsalva. There is mixed calcified/noncalcified plaque in the proximal RCA segment, with up to 25-49% luminal stenosis. Non-Coronary Cardiac Findings: Analysis of the left ventricular (LV) structure and function was performed after 3-D reconstruction of the LV from axial images, with user-corrected automatic contouring for assessment of LV volumes and user-defined reconstruction from oblique planes for measurement of 3-D cardiac structure and function. -The left ventricle systolic function is normal. -There is no left atrial appendage filling defect. Two right pulmonary veins and two left pulmonary veins drain normally into the left atrium. -No pericardial thickening or calcification. -Central and branch pulmonary arteries in the [id number] are unremarkable. -Thoracic aorta within the visualized thoracic aortic-branches in the [id number] is unremarkable. Extracardiac Structures No significant extra-cardiac findings. Note, however, that this study is focused on the cardiac findings. IMPRESSION -Presence of coronary calcification with an Agatston score = 152 using the AJ-130 method. -Compared to prior CAC (10/21/2022), the coronary calcification score has progressed from 52 to152. -The observed calcium score of 152 is at 69th percentile for subjects of the same age, sex, and race/ethnicity. -Moderate atherosclerotic coronary disease, with possible evidence of significant flow-limiting atherosclerosis of the mid LAD segment immediately distal to the first diagonal branch. -CAD-RADS 3. Management recommendations per ACC/AHA guidelines*, as clinically appropriate. *Recommendations: CAD RADS 0: Reassurance. Consider non-atherosclerotic causes of chest pain. CAD RADS 1: Consider non-atherosclerotic causes of chest pain. Consider preventive therapy and risk factor modification. CAD RADS 2: Consider non-atherosclerotic causes of chest pain. Consider preventive therapy and risk factor modification, particularly for patients with nonobstructive plaque in multiple segments. CAD RADS 3: Consider further functional testing. Consider symptom-guided anti-ischemic and preventive pharmacotherapy as well as risk factor modification per published guideline statements. CAD RADS 4A: Consider further functional testing or invasive coronary angiography with revascularization per published guideline statements. Consider symptom-guided anti-ischemic and preventive pharmacotherapy as well as risk factor modification per published guideline statements. CAD RADS 4B: Invasive coronary angiography recommended with revascularization per published guideline statements. Consider symptom-guided anti-ischemic and preventive pharmacotherapy as well as risk factor modification per published guideline statements. CAD RADS 5: Consider invasive angiography and/or viability assessment with revascularization per published guideline statements. Consider symptom-guided anti-ischemic and preventive pharmacotherapy as well as risk factor modification per published guideline statements. CRITICAL RESULT None COMMUNICATION Per this written report The coronary and cardiac findings of this CCTA were reviewed, reported, and signed by Jaspal Yeung MD (Individual Pension Adviser) Conclusion Electronically signed by : Teodora Yeung MD 12/04/2024 12:49:33
[2024-12-01 09:12] VITALS: BMI 34.5
[2024-12-01 09:19] VITALS: BP 133/80; PULSE 50; RESP 16; TEMP 36.6; O2SAT 100
[2024-12-01 09:49] LABS: Anion Gap 9.7 mEq/L (5-15); Blood Urea Nitrogen 22 mg/dl (9-20); Calcium 9.2 mg/dl (8.4-10.2); Carbon Dioxide 26 mmol/L (22.0-30.0); Chloride 104 mmol/L (98-107); Creatinine Clearance Estimated 96 mL/min (50-200); Estimated Glomerular Filt Rate 98 ml/min (>60); GFR (African American) 119 ML/MIN (>60); Glucose 92 mg/dl (74-100); Potassium 4.7 mmoL/L (3.5-5.1); Sodium 135 mmol/L (136-145)
[2024-12-01 10:07] VITALS: BP 179/107; PULSE 52; RESP 16; O2SAT 98
[2024-12-01 10:10] VITALS: BP 134/87; PULSE 58; RESP 16; O2SAT 98
[2024-12-01 10:13] VITALS: BP 144/94; PULSE 55; RESP 16; O2SAT 98
[2024-12-01] MEDS: SODIUM CHLORIDE 0.9% 10ML SYR (RAD ONLY) 10 ML IV (10:23)
[2024-12-01] MEDS: IOPAMIDOL-370 (76%);100ML BOTTLE 80 ML IV (10:23)
[2024-12-01] MEDS: 0.9 % SODIUM CHLORIDE 50 ML VIAL IV (10:23)
[2024-12-01 10:26] VITALS: BP 115/68; PULSE 45; RESP 16; O2SAT 96
== END 2024-12-01 10:30 | disposition home or self-care (01) ==
PROVIDERS: PCP Family Medicine; Visit Provider Physician Assistant
DX: R94.31 Abnormal electrocardiogram [ECG] [EKG] (principal); I10 Essential (primary) hypertension; Z82.49 Family history of ischemic heart disease and other diseases of the circulatory system
CPT/HCPCS: 75574; 80048; Q9967

== ENCOUNTER 2024-12-16 08:27 | Outpatient (CLI) | payer BC, SELFPAY ==
[2024-12-16 08:53] LABS: Basophils % 0.5 % (0.1-2.0); Eosinophils # 0.2 K/mm3 (0.0-0.4); Eosinophils % 2.6 % (0.1-12.0); Hematocrit 44.5 % (42.0-52.0); Hemoglobin 15.4 g/dL (14.1-18.0); Lymphocytes # 2.3 K/mm3 (0.7-4.5); Lymphocytes % 35.7 % (10-50); Mean Corpuscular HGB Conc 34.6 g/dL (31.8-35.4); Mean Corpuscular Hemoglobin 31.6 pg (27.0-31.2); Mean Corpuscular Volume 91.4 fl (80-94); Mean Platelet Volume 12.3 fl (7.4-10.4); Monocytes # 0.7 K/mm3 (0.1-1.0); Monocytes % 9.9 % (1.7-9.3); Neutrophils # 3.4 K/mm3 (1.8-7.8); Neutrophils % 51.1 % (37.0-80.0); Platelet Count 163 K/mm3 (142-424); Red Blood Count 4.87 M/mm3 (4.60-6.20); White Blood Count 6.6 K/mm3 (4.8-10.8)
[2024-12-16 09:24] LABS: Hemoglobin A1C 5.4 % (4.0-6.0)
[2024-12-16 09:28] LABS: Alanine Aminotransferase 32 U/L (12-78); Albumin Level 4.3 g/dl (3.5-5.0); Alkaline Phosphatase 67 U/L (38-126); Anion Gap 11.5 mEq/L (5-15); Aspartate Amino Transferase 29 U/L (17-59); Bilirubin,Direct 0.3 mg/dl (0.0-0.4); Bilirubin,Indirect 0.5 mg/dL (0.0-0.9); Bilirubin,Total 0.8 mg/dl (0.2-1.3); Bilirubin,Unconjugated 0.5 mg/dL (0.0-1.1); Blood Urea Nitrogen 24 mg/dl (9-20); Calcium 9.8 mg/dl (8.4-10.2); Carbon Dioxide 27 mmol/L (22.0-30.0); Chloride 106 mmol/L (98-107); Chol/HDL Ratio 2.6 (1-3.5); Cholesterol 113 mg/dl (140-200); Estimated Glomerular Filt Rate 86 ml/min (>60); GFR (African American) 103 ML/MIN (>60); Glucose 101 mg/dl (74-100); HDL Cholesterol 44 mg/dl (40-60); Potassium 4.5 mmoL/L (3.5-5.1); Sodium 140 mmol/L (136-145); Total Protein,Serum 6.6 g/dl (6.3-8.2); Triglycerides 60 mg/dl (30-150); VLDL Cholesterol 12 mg/dL (0-40)
[2024-12-16 09:46] LABS: Free T4 (Free Thyroxine) 0.94 ng/dl (0.78-2.19)
[2024-12-16 09:58] LABS: Thyroid Stimulating Hormone 1.83 uIU/mL (0.465-4.68)
[2024-12-17 16:19] LABS: Cortisol,AM 15.8 ug/dL (6.2-19.4)
[2024-12-21 11:12] LABS: Free Testosterone (Direct) 4.5 pg/mL (6.6-18.1); Testosterone, Total, LC/MS 293.9 ng/dL (264.0-916.0)
== END 2024-12-16 23:59 | disposition home or self-care (01) ==
LOC: LAB 08:30
PROVIDERS: PCP Family Medicine; Visit Provider Internal Medicine
DX: E78.2 Mixed hyperlipidemia (principal); R93.1 Abnormal findings on diagnostic imaging of heart and coronary circulation; I25.10 Atherosclerotic heart disease of native coronary artery without angina pectoris; I10 Essential (primary) hypertension; Z82.49 Family history of ischemic heart disease and other diseases of the circulatory system
CPT/HCPCS: 36415; 80048; 80061; 80076; 82533; 83036; 84402; 84403; 84439; 84443; 85025

== ENCOUNTER 2025-02-17 10:39 | Outpatient (CLI) | payer BC, SELFPAY ==
--- OUTSIDE RECORDS SUMMARY | 2024-09-22 11:30 | XMS_ITS ---
[facility] Address [address] [place] [id number] Care Team Providers Care Lining Repairer Name Role Phone Hector Nair Unavailable [phone] Allergies No Known Allergies Results Component Value Reference Range Notes CBC Fingerstick (in house) Reviewed date:09/22/2024 04:24:44 PM Interpretation: Performing Lab: Notes/Report: wbc 14.9 3.5 - 10 lym 14.9 15 - 50 mid 3.8 2 - 15 gran 81.3 35 - 80 rbc 5.06 3.5 - 5.5 hgb 15.8 11.5 - 16.5 hct 47.8 35 - 55 mcv 94.4 75 - 100 mch 31.2 25 - 35 mchc 33.0 31 - 38 plat 130 100 - 400 REASON FOR VISIT sore throat, following up on bronchitis Medications Medication SIG (Take, Route, Frequency, Duration) Notes Start Date End Date Status Cefdinir 300 MG as directed Orally Not-Taking Benzonatate 100 MG 1 capsule as needed Orally Three times a day Active Zithromax Z-Chandler 250 MG as directed Orall y once daily for 5 day(s) 09/22/2024 Active methylPREDNISolone 4 MG as directed Orally 025 Not-Taking Promethazine-DM 6.25-15 MG/5ML 5-10 ml Orally every 6 hrs prn 09/14/2024 Active Atorvastatin Calcium 40 MG 1 tab(s) oral ly once a day for 90 days Active Pantoprazole Sodium 40 MG 1 tab(s) orall y once a day for 90 days Active Aspirin Adult Low Dose 81 MG 1 tablet Or ally Once a day for 90 days 08/02/2024 Active amLODIPine Besylate 5 MG 1 tablet Orally Once a day for 90 days Active hydroCHLOROthiazide 12.5 MG 1 capsule in the morning Orally Once a day for 90 days 03/17/2024 Active Fluticasone Propionate 50 MCG/ACT 1 spray(s) in each nostril Two times a day for 90 days Active Meloxicam 15 MG 1 tablet Orally Once a day for 30 day(s) 03/31/2023 Active Glucosamine & Fish Oil 955-515-61-40 MG 3 cap(s) orally once a day Active Lisinopril 30 MG Take 1 tablet by mouth once daily for 90 Active Lisinopril 10 MG 1 tab(s) orally At Bed Time for 90 days Active Potassium 99 MG 1 tablet Orally Once a day for 30 day(s) Active Vital Signs Blood pressure systolic 126 mm Hg 09/22/19 25 Blood pressure diastolic 80 mm Hg 025 Heart Rate 84 /min 09/22/2024 Height 63 in 09/22/2024 Weight 208.2 lbs 09/22/2024 BMI 36.88 kg/m2 09/22/2024 Encounters Encounter Location Date Provider Diagnosis [facility] [address] [facility] [address] [place] [address], [place] [phone] 09/22/2024 Hector Nair Acute URI J06.9 Assessments Encounter Date Diagnosis (ICD Code) Assessment Notes Treatment Notes Treatment Clinical Notes Section Notes 09/22/2024 Acute URI (ICD-10 - J06.9) Plan Of Treatment Medication Medication Name Sig Start Date Stop Date Notes Zithromax Z-Chandler 250 MG as directed Orall y once daily for 5 day(s) 09/22/2024 Next Appt Details Follow Up: prn, Reason: Progress Notes * ZEFERINO MANCINIEDOB:1960 (64 yo M)Acc No.[id number]:09/22/2024 Progress Notes Patient: HAYDEE GAINES Provider: Devin Nair M.D. :1960 A ge:64 Y S ex:Male Date:09/22/2024 Address:[address] [place] [address] [place], [id number] Subjective: * Chief Complaints: * 1 . Sore throat, following up on bronchitis. * HPI: E NT/respiratory: 64 year old male presents with c/o nasal congestion. c/o ear pain P t sts his ears have been popping. * ROS: D ERMATOLOGY: no R austin. n o H stanley. G ASTROENTEROLOGY: no N ausea. n o V omiting. n o D iarrhea.? U ROLOGY: no D ifficulty urinating. n o B lood in urine. * Medical History: H ypertension, Hyperlipidemia, Hiatal Hernia, Esophageal Reflux, Allergic Rhinitis, Kidney Stones, Testosterone Deficiency, Carpal Tunnel Syndrome. * Surgical History: C olonoscopy, Normal 2014. * Family History: F ather: , diagnosed [...] Orally Three times a day , Taking Potassium 99 MG Tablet 1 tablet Orally Once a day , Taking Glucosamine & Fish Oil 936-160-19-40 MG Capsule 3 cap(s) orally once a [...] tab(s) orally once a day , Taking Promethazine-DM 6.25-15 MG/5ML Syrup 5-10 ml Orally every 6 hrs prn , Not-Taking Cefdinir 300 MG Capsule as directed Orally , Not-Taking methylPREDNISolone 4 MG Tablet Therapy Pack as directed Orally , Medication List reviewed and reconciled with the patient * Allergies: N .K.D.A. Objective: * Vitals: W t:208.2, Temp:97.9, BP:126/80, HR:84, Nurse:[facility], Ht: 63, BMI:36.88. * Examination: E NT/Respiratory: General Appearance: N AD. Eyes: P ERRLA, sclera clear. Ears: a uditory canals normal bilaterally, TM's WNL. Oral cavity : erythema without exudate on pharynx. Neck : n o cervical lymphadenopathy. Heart : R RR, normal S1 S2. Lungs: c lear to auscultation bilaterally. Assessment: * Assessment: 1. Woody salbadormeliton URI - J06.9 (Primary) Plan: * Treatment: Value Reference Range w bc 14.9 3.5 - 10 * l ym 14.9 15 - 50 * m id 3.8 2 - 15 * g ran 81.3 35 - 80 * r bc 5.06 3.5 - 5.5 * h gb 15.8 11.5 - 16.5 * h ct 47.8 35 - 55 * m cv 94.4 75 - 100 * m ch 31.2 25 - 35 * m chc 33.0 31 - 38 * p lat 130 100 - 400 * Erin Davis 09/22/2024 3:52: 42 PM > Provider reviewed results while patient in office. * Procedure Codes: 3 6416 CAPILLARY BLOOD DRAW, 92793 CBC WITH AUTO DIFF * Follow Up: p rn * Billing Information: * Visit Code: 27931 Office Visit, Est Pt., Level 3. * Procedure Codes: 75639 CAPILLARY BLOOD DRAW. 16899 CBC WITH AUTO DIFF. * Electronic signature of Claudine Nair MD on 02/17/2025 at 10:42 AM EDT Sign off status: Pending * Provider: Devin Nair M.D. Date: 0 09/22/2024 Generated for Carlosi anoop/Fidelia/eTransmitting on: 0 02/17/2025 10:42 AM EDT History and Physical Notes * HPI (History of Present Illness) Category Sub-Category Detail Notes Category Not es ENT/respiratory ear pain Pt sts his ears have been popping nasal congestion Examination Category Sub-Category Detail Notes Category Not es ENT/Respiratory Oral cavity : erythema without exudate on pharynx Ears: auditory canals norm al bilaterally, TM's WNL Neck : no cervical lymphade nopathy Heart : RRR, normal S1 S2 Lungs: clear to auscultatio n bilaterally General Appearance: NAD Eyes: PERRLA, sclera clear
--- OUTSIDE RECORDS SUMMARY | 2024-10-02 05:15 | XMS_ITS ---
[facility] Organization [facility] Address [address] [place] [phone] Care Team Providers Care Maintenance Helper Utility Engineer Name Role Phone Hector Nair Unavailable [phone] Allergies No Known Allergies Results Component Value [...] a day for 90 days 03/17/2024 Active Atorvastatin Calcium 40 MG 1 tab(s) oral ly once a day for 90 days Active Lisinopril 30 MG Take 1 tablet by mouth once daily for 90 Active Lisinopril 10 MG 1 tab(s) orally At Bed Time for 90 days Active Fluticasone Propionate 50 MCG/ACT 1 spray(s) in each nostril Two times a day for 90 days Active Meloxicam 15 MG 1 tablet Orally Once a day for 30 day(s) 03/31/2023 Active Glucosamine & Fish Oil 277-944-38-40 MG 3 cap(s) orally once a day Active Potassium 99 MG 1 tablet Orally Once a day for 30 day(s) Active Benzonatate 100 MG 1 capsule as needed Orally Three times a day Active Vital Signs Blood pressure systolic 124 mm Hg 10/02/19 25 Blood pressure diastolic 78 mm Hg 025 Heart Rate 60 /min 10/02/2024 Height 63 in 10/02/2024 Weight 205.2 lbs 10/02/2024 BMI 36.35 kg/m2 10/02/2024 Encounters Encounter Location Date Provider Diagnosis [facility] [address] [place] [phone] 10/02/2024 Hector Nair Persistent cough R05 .3 Assessments Encounter Date Diagnosis (ICD Code) Assessment Notes Treatment Notes Treatment Clinical Notes Section Notes 10/02/2024 Persistent cough (ICD-10 - R05.3) WBC count is normal now Plan Of Treatment Treatment Notes Assessment Notes Persistent cough WBC count is normal now Next Appt Details Follow Up: prn, Reason: Progress Notes * ZEFERINO MANCINIEDOB:1960 (64 yo M)Acc No.[id number]:10/02/2024 Progress Notes Patient: HAYDEE GAINES Provider: Devin Nair M.D. :1960 A ge:64 Y S ex:Male Date:10/02/2024 Address:[address] [place] [address] [address] [id number] Subjective: * Chief Complaints: * 1 . [...] day , Taking Glucosamine & Fish Oil 732-540-95-40 MG Capsule 3 cap(s) orally once a [...] N AD. Eyes: P ERRLA, sclera clear. Oral cavity : n o erythema or exudate seen on pharynx. Neck : n o cervical [...] p lat 123 100 - 400 * SusanErin 10/02/2024 9:41: 35 AM > , Provider reviewed results while patient in office. Notes: WBC count is normal now?? * Procedure Codes: 3 6416 CAPILLARY BLOOD DRAW, 85266 CBC WITH AUTO DIFF * Follow Up: p rn * Billing Information: * Visit Code: 80736 Office Visit, Est Pt., Level 3. * Procedure Codes: 23822 CAPILLARY BLOOD DRAW. 54963 CBC WITH AUTO DIFF. * Electronic signature of Claudine Nair MD on 02/17/2025 at 10:42 AM EDT Sign off status: Pending * Provider: Devin Nair M.D. Date: 0 10/02/2024 Generated for Mansoor davalos/Fidelia/Zairaitting on: 0 02/17/2025 10:42 AM EDT History [...]
--- OUTSIDE RECORDS SUMMARY | 2024-12-16 17:30 | XMS_ITS ---
Author Organization [facility] Address [address] [place] [address] Care Team Providers Care Silk Trimmer Name Role Phone Tarun Carlton Primary Care Provider Migration, Provider Unavailable Unavailable [facility]ISIT [facility] Conversion Encounter Medications Medication SIG (Take, Route, Frequency, Duration) Notes Start Date End Date Status amLODIPine Besylate 2.5 MG 1 tab(s) orally once a day for 90 Active Pantoprazole Sodium 40 MG 1 tab(s) orally once a day for 90 Active SUDAFED 24-HOUR 240 MG 1 TAB(S) ORALLY ONCE A DAY for 90 DAYS *Please review for potential replacement for e-prescription and drug interaction check* Active Fluticasone Propionate 50 MCG/ACT 1 spray(s) in each nostril 2 times a day for 90 days 07/31/2021 Active Lisinopril 10 MG 1 tab(s) orally twice a day for 90 days Active Lisinopril 2.5 MG 1 tab(s) orally once a day for 90 Active Atorvastatin Calcium 40 MG 1 tab(s) orally once a day for 90 Active Sudafed 30 MG 1-2 tab(s) orally twice daily for 30 day(s) Active Potassium 99 BID once a day QOD *Please review and pick correct strength-formulatio n from Identifiedspan options. If intended option is not shown, discontinue and re-order from Quick Search* Active Magnesium 400MG 1 TABLET BID QOD *Please revi ew and pick correct strength-formulatio n from Medispan options. If intended option is not shown, discontinue and re-order from Quick Search* Active Encounters Encounter Location Date Provider Diagnosis [facility] [address] [place] [address] 12/16/2024 Provider Migration Plan Of Treatment Medication Medication Name Sig Start Date Stop Date Notes Lisinopril 10 MG 1 tab(s) orally twic e a day for 90 days Lisinopril 2.5 MG 1 tab(s) orally once a day for 90 Atorvastatin Calcium 40 MG 1 tab(s) oral ly once a day for 90 Sudafed 30 MG 1-2 tab(s) orally tw ice daily for 30 day(s) Progress Notes * Shayy YOSTOB:1960 (64 yo M)Acc No.[id number]:12/16/2024 Patient: Rick GAINES Provider: Naila patel Migration :1960 A ge:64 Y S ex:Male Date:12/16/2024 Address:[address] [place] [address] [id number] Pcp:Carlton Mcneil Subjective: * Chief Complaints: * 1 . [facility] Conversion Encounter. * Medical History: * Medications: T aking Magnesium 400MG 1 TABLET BID , Notes to Pharmacist: QOD *Please review and pick correct strength-formulation from Medispan options. If intended option is not shown, discontinue and re-order from Quick Search*, Taking Potassium 99 OTC BID , Notes to Pharmacist: once a day QOD *Please review and pick correct strength-formulation from Identifiedspan options. If intended option is not shown, discontinue and re-order from Quick Search*, Taking Fluticasone Propionate 50 MCG/ACT Suspension 1 spray(s) in each nostril 2 times a day , Taking SUDAFED 24-HOUR 240 MG TABLET, EXTENDED RELEASE 1 TAB(S) ORALLY ONCE A DAY , Notes to Pharmacist: *Please review for potential replacement for e-prescription and drug interaction check*, Taking Pantoprazole Sodium 40 MG Tablet Delayed Release 1 tab(s) orally once a day , Taking amLODIPine Besylate 2.5 MG Tablet 1 tab(s) orally once a day Objective: * Vitals: Assessment: Plan: * Treatment: * * Electronic signature of Prov gus Migration on 02/17/2025 at 10:42 AM EDT Sign off status: Pending * Provider: Naila patel Migration Date: 0 12/16/2024 Generated for Mansoor davalos/Fidelia/Deb on: 0 02/17/2025 10:42 AM EDT
--- OUTSIDE RECORDS SUMMARY | 2024-12-29 12:15 | XMS_ITS ---
[facility] Address [address] [place] [phone] Care Team Providers Care Polishing Machine Operator Helper Name Role Phone Hector Nair Unavailable [phone] Allergies No Known Allergies Reason For Referral [...] LE BY MOUTH IN THE MORNING ONCE DAILY for 90 Active Atorvastatin Calcium 40 MG Take 1 tablet by mouth once daily for 90 Active Fluticasone Propionate 50 MCG/ACT Use 1 spray(s) in each nostril twice daily for 90 Active Lisinopril 10 MG 1 tab(s) orally At Bed Time for 90 days Active Lisinopril 30 MG Take 1 tablet by mouth once daily for 90 Active Pantoprazole Sodium 40 MG 1 tab(s) orall y once a day for 90 days Active Glucosamine & Fish Oil 358-183-26-40 MG 3 cap(s) orally once a day Active Meloxicam 15 MG 1 tablet Orally Once a day for 30 day(s) 03/31/2023 Active amLODIPine Besylate 5 MG 1 tablet Orally Once a day for 90 days Active Aspirin Adult Low Dose 81 MG 1 tablet Or ally Once a day for 90 days 08/02/2024 Active Potassium 99 MG 1 tablet Orally Once a day for 30 day(s) Active Problems Problem Type SNOMED Code ICD Code Onset Dates Problem Status W/U Status Risk Notes Problem [id number] Testosterone deficiency in male (E29.1) Active confirmed Vital Signs Blood pressure systolic 130 mm Hg 12/30/19 25 Blood pressure diastolic 82 mm Hg 025 Heart Rate 72 /min 12/29/2024 Height 63 in 12/29/2024 Weight 202 lbs 12/29/2024 BMI 35.78 kg/m2 12/29/2024 Encounters Encounter Location Date Provider Diagnosis [facility] [address] [place] [phone] 12/29/2024 Hector Nair Testosterone deficie ncy in male E29.1 Assessments Encounter Date Diagnosis (ICD Code) Assessment Notes Treatment Notes Treatment Clinical Notes Section Notes 12/29/2024 Testosterone deficiency in male (ICD-10 - E29.1) Plan Of Treatment Referrals Referral Date Details 12/29/2024 12/29/2024, Luis Polo Appt Details Follow Up: via phone to repo rt progress, Reason: Progress Notes * JOHNNIE MANCINIOB:1960 (64 yo M)Acc No.[id number]:12/29/2024 Progress Notes Patient: HAYDEE GAINES Provider: Devin Nair M.D. :1960 A ge:64 Y S ex:Male Date:12/29/2024 Address:[address] [place] [address] [id number] Subjective: * Chief Complaints: * 1 . [...] day , Taking Glucosamine & Fish Oil 375-588-30-40 MG Capsule 3 cap(s) orally once a [...] v ia phone to report progress * Billing Information: * Visit Code: 57931 Office Visit, Est Pt., Level 3. * Procedure Codes: 3075F SYST BP GE 130 - 139MM HG. 3079F DIAST BP 80-89 MM HG. * Electronic signature of Claudine Nair MD on 02/17/2025 at 10:42 AM EDT Sign off status: Pending * Provider: Devin Nair M.D. Date: 0 12/29/2024 Generated for Mansoor davalos/Fidelia/eTransmitting on: 0 02/17/2025 10:42 AM EDT History [...]
--- OUTSIDE RECORDS SUMMARY | 2025-02-17 10:42 | XMS_ITS | Data Portability ---
Author Organization [facility] [place] & YANNI Tellez ADMIN Address [address] [place] [address] Care Team Providers Care Electrotype Servicer Name Role Phone SHILOH NAIR Primary Care Provider Assessment Encounter Date Assessment Date Assessment LastModified by Organization Details LastModified Time 02/13/2025 02/13/2025 ASSESSMENT: Rick Yost is a 64-year-old male with a history of low testosterone and prior testosterone injections discontinued due to concerns about cardiovascular risks. PLAN: 1. Ordered updated laboratory tests, including testosterone levels, hematocrit, estrogen levels, liver enzymes, and PSA, to establish a baseline and meet insurance requirements. 2. Instructed the patient to complete labs early in the morning, before 09:30, to ensure accurate testosterone measurements. 3. Discussed options for testosterone replacement therapy, including injections, oral medications (clomiphene), topical creams/gels/patch es, implants (Testopel), and long-acting injections (Aveed). Explained the benefits, drawbacks, and cost considerations for each option. 4. Educated the patient on the importance of monitoring testosterone therapy with follow-up labs every six months once the protocol is established. 5. Planned to review lab results and discuss treatment options over the phone in approximately two weeks. [email or web address] Not available 02/13/2025 15:41:38 Plan of Treatment Reminders Order Date Submit Date Provider Last Modified By Organization Details Last Modified Time Details Appointments TELEPHONI C VISIT 15 2024 04:30P Franklin KIMBROUGH MD Not available Not available Not available Lab testoster one, free + total, w/ shbg, serum 2024 025 ATHENAFAX [facility] (Lab), [address], [place], [address], 02/13/2025 16:20:29 estradiol , serum 2024 025 [facility] (Lab), [address], [place], [address], 02/13/2025 16:20:28 prolactin , serum 2024 025 [facility] (Lab), [address], [place], [address], 02/13/2025 16:20:28 PSA, serum or plasma 2024 025 [facility] (Lab), [address], [place], [address], 02/13/2025 16:20:28 CBC 2024 025 [facility] (Lab), [address], [place], [address], 02/13/2025 16:20:28 CMP, serum or plasma 2024 025 [facility] (Lab), [address], [place], [address], 02/13/2025 16:20:28 Referral None recorded. Procedures None recorded. Surgeries None recorded. Imaging None recorded. Medication Orders None recorded. Patient TargetsNo targets recorded. Patient InstructionsNo instructions recorded. Reason for Referral None Reported. Problems Name Problem SNOMED Code Status Onset Date Resolution Date Notes Provider Name and Address Organization Details Recorded Time Fatigue 23247956 Active 025 AUGUSTIN KIMBROUGH MD [address] [facility], [place], [address], [facility] - [facility] - [place] & [place] 02/13/2025 15:39:16 Problem Notes None recorded. Medical Equipment None Reported. Allergies No known drug allergies Medications Name Sig Start Date Stop Date Status Note LastModified by Organization Details LastModified Time atorvastati n 40 mg tablet TAKE 1 TABLET BY MOUTH ONCE DAILY active Not Available Not Available No t Available promethazin e-DM 6.25 mg-15 mg/5 mL oral syrup TAKE 5 TO 10 ML BY MOUTH EVERY 6 HOURS NEEDED 02/13 completed Not Available Not Available Not Available cetirizine 10 mg tablet TAKE 1 TABLET BY MOUTH ONCE DAILY 02/13 completed Not Available Not Available Not Available azithromyci n 250 mg tablet TAKE 2 TABLETS BY MOUTH ON DAY 1, AND THEN TAKE 1 TABLET BY MOUTH ONCE A DAY ON DAY 2 THROUGH DAY 5 02/13 completed Not Available Not Available Not Available ondansetron HCl 8 mg tablet TAKE 1 TABLET BY MOUTH EVERY 8 HOURS 02/13 completed Not Available Not Available Not Available prednisone 20 mg tablet TAKE 1 TABLET BY MOUTH TWICE DAILY FOR 4 DAYS 02/13 completed Not Available Not Available Not Available amlodipine 2.5 mg tablet TAKE 1 TABLET BY MOUTH ONCE DAILY 02/13 completed Not Available Not Available Not Available amlodipine 5 mg tablet TAKE 1 TABLET BY MOUTH ONCE DAILY active Not Available Not Available No t Available aspirin 81 mg tablet,kera yed release TAKE 1 TABLET BY MOUTH ONCE DAILY active Not Available Not Available No t Available oxycodone-a cetaminophe n 5 mg-325 mg tablet TAKE 1 TABLET BY MOUTH EVERY 8 HOURS NEEDED FOR PAIN 02/13 completed Not Available Not Available Not Available benzonatate 100 mg capsule TAKE 1 CAPSULE BY MOUTH THREE TIMES DAILY NEEDED FOR COUGH 02/13 completed Not Available Not Available Not Available pantoprazol e 40 mg tablet,kera yed release TAKE 1 TABLET BY MOUTH ONCE DAILY 02/13 completed Not Available Not Available Not Available lisinopril 10 mg tablet TAKE 1 TABLET BY MOUTH ONCE DAILY AT BEDTIME FOR 90 DAYS 02/13 completed Not Available Not Available Not Available hydrochloro thiazide 12.5 mg capsule TAKE 1 CAPSULE BY MOUTH IN THE MORNING 02/13 completed Not Available Not Available Not Available lisinopril 30 mg tablet TAKE 1 TABLET BY MOUTH ONCE DAILY active Not Available Not Available No t Available montelukast 10 mg tablet TAKE 1 TABLET BY MOUTH ONCE DAILY 02/13 completed Not Available Not Available Not Available methylpredn isolone 4 mg tablets in a dose pack TAKE BY MOUTH DIRECTED ON INSIDE OF PACKAGE 02/13 completed Not Available Not Available Not Available cefdinir 300 mg capsule TAKE 1 CAPSULE BY MOUTH TWICE DAILY 02/13 completed Not Available Not Available Not Available fluticasone propionate 50 mcg/actuati on nasal spray,suspe nsion USE 1 SPRAY(S) IN EACH NOSTRIL TWICE DAILY FOR 90 DAYS 02/13 completed Not Available Not Available Not Available Vitals Date Recorded Body height Body mass index (BMI) Body weight Oxygen saturation Oxygen saturation in Arterial blood by Pulse oximetry Heart rate Systolic blood pressure Diastolic blood pressure Provider Name and Address Organization Details Last Updated DateTime 160.02 cm 35.6 kg/m2 63522.0 7 g 98 % 98 % 61 /min 128 mm[Hg] 74 mm[Hg] Therese [place] - [facility] & [place] 15:28:30 Social History None recorded. Functional Status None recorded. Mental Status None recorded. Family History Relationship Description Onset Age of this Age Resolved Age Notes LastModified by Organization Details LastModified Time Mother Hypertensive disorder [email or web address] [email or web address] Not available 02/13/2025 15:29:10 Father Heart disease [email or web address] Not available 02/13/2025 15:29:20 Medical History No medical history recorded. Past Encounters Encounter ID Performer Location Encounter Start Date Encounter Closed Date Diagnosis/Indication Diagnosis SNOMED-CT Code Diagnosis ICD10 Code Diagnosis Note [id number] AUGUSTIN KIMBROUGH MD [facility] [place] [address] 02/13/2025 15:21:30 02/13/2025 15:44:10 Fatigue 40182751 R53.83 Health Concerns Section Related Observation LastModified by Organization Detai ls LastModified Time None Recorded Concern Status LastModified by Organization Details LastModified Time None Recorded Advance Directives Directive None Recorded Payers Insurance Date Sequence Insurance Name Policy Number Policy Aguayo Covered Member ID Aguayo Member ID Guarantor Name 02/13/2025 1 [place] [id number] Rick Yost [id number] Rick Yost Notes Date Note Type Note Provider Name and Address Organization Details Recorded Time 02/13/2025 text/html 02/13/25 64-hrfb-uzy-male referred to my office for testosterone deficiency in male. Rick Yost is a 64-year-old male who presents for a new patient visit regarding low testosterone. He has a history of receiving testosterone injections approximately two to three years ago under the care of Dr. Palomino at [facility]. The injections were administered every two weeks or monthly, but the treatment was discontinued after a few months. He has not been on testosterone therapy since then. Dr. Nair, his subsequent provider, did not favor testosterone treatment due to concerns about cardiovascular risks. Symptoms prior to initiating testosterone therapy included fatigue and decreased energy levels. Despite being an active individual who exercises daily and works in a factory for 36 years, he noticed a decline in energy over the past three to four years. He denies issues with libido, erectile function, or sleep disturbances. He reports a low resting heart rate, described as a runner's heart, typically in the 40s to 50s, which increases appropriately during exercise. He denies any difficulty with urination, weak stream, or straining but notes increased frequency of urination, including waking once or twice at night depending on fluid intake. There is no family history of prostate issues or prostate cancer. 12/16/24 T free 4.5, Total T 293.9, Cortisol AM 15.8 AUGUSTIN KIMBROUGH MD [address], [place], [address], [facility] & [place] 02/13/2025 16:27:23
--- OUTSIDE RECORDS SUMMARY | 2025-02-17 10:42 | XMS_ITS | Patient Health Record ---
Author Organization [facility] Address [address] [facility] [place] [id number] Care Team Providers Care Biodiesel Product Development Manager Name Role Phone Hector Nair Unavailable [phone] Georgiana Hughes Unavailable [phone] Allergies No Known Allergies Results Component Value [...] - 38 plat 154 100 - 400 P-Comprehensive Metabolic Pa luis m (CMP) Reviewed date:03/20/2024 10:38:34 AM Interpretation:Normal Performing Lab: Notes/Report: Test performed by [facility] [address] [place] [address] , [address], [place] [address] Ramon Vargas MD, Plastic Surgery Coordinator CLIA: [id number] Sodium 142 135-145 mmol/L Potassium 4.7 3.5-5.3 [...] Interpretation:Normal Performing Lab: Notes/Report: Test performed by [facility], [address] , [place] [address] Ramon Vargas MD, Plastic Surgery Coordinator CLIA: [id number] Cholesterol 127 <200 mg/dL Triglycerides 59 <150 [...] Interpretation:Normal Performing Lab: Notes/Report: Test performed by [facility] [address] [place], [place] [address] [place] , [place] [address] Ramon Vargas MD, Plastic Surgery Coordinator CLIA: [id number] PSA 0.92 <4.00 ng/mL Please note this is an ultrasensitive PSA assay with a lower limit of detection of 0.014 ng/mL. This test is performed by the Tab ECLIA methodology. Values obtained with different assay methods or kits cannot be directly compared. P-TSH reflex to FT4 Reviewed date:03/20/2024 10:38:34 AM Interpretation:Normal Performing Lab: Notes/Report: Test performed by [facility] [address] [place], [place] [address] [employer] [place] , [place] [address] Ramon Vargas MD, Plastic Surgery Coordinator CLIA: [id number] TSH reflex to FT4 1.61 0.43-5.25 mU/L P-Microalbumin/Creatinine, R andom Urine Sample Reviewed date:03/20/2024 10:38:35 AM Interpretation:Normal Performing Lab: Notes/Report: Test performed by [facility], [facility] , [address], [place] [address] Ramon Vargas MD, Plastic Surgery Coordinator CLIA: [id number] Albumin/Creatinine Ratio, Urine 7 0-30 ug/mg Microalbumin, Urine, Random 0.9 Creatinine, Urine 138.0 CBC Finger[facility] (in house) Reviewed date:09/22/2024 04:24:44 [...] - 38 plat 130 100 - 400 CBC [facility] (in house) Reviewed date:10/02/2024 12:37:09 [...] - 38 plat 123 100 - 400 CBC [facility] (in house) Reviewed date:05/25/2024 09:42:21 [...] - 38 plat 111 100 - 400 Reason For Referral Diagnosis 1 Testosterone deficie ncy in male (E29.1) Referral Organization [facility] Referring Provider First Name Hector Referring Provider Last Name Korey Referring Provider Speciality Family Pra ctice Referred Provider Art, Luis Referred Provider Specialty Urology General Notes [place] 2024 09:57:48 AM > faxed to Dr. Orellana's office Referral Priority Routine Medications Medication SIG (Take, Route, Frequency, Duration) Notes Start Date End Date Status EQ Aspirin Adult Low Dose 81 MG Take 1 t ablet by mouth once daily for 90 Active Atorvastatin Calcium 40 MG Take 1 tablet by mouth once daily for 90 Active hydroCHLOROthiazide 12.5 MG TAKE 1 CAPSU LE BY MOUTH IN THE MORNING ONCE DAILY for 90 Active Potassium 99 MG 1 tablet Orally Once a day for 30 day(s) Active Lisinopril 30 MG Take 1 tablet by mouth once daily for 90 Active Fluticasone Propionate 50 MCG/ACT Use 1 spray(s) in each nostril twice daily for 90 Active Lisinopril 10 MG 1 tab(s) orally At Bed Time for 90 days Active Pantoprazole Sodium 40 MG Take 1 tablet by mouth once daily for 90 Active Glucosamine & Fish Oil 756-733-26-40 MG 3 cap(s) orally once a day Active Meloxicam 15 MG 1 tablet Orally Once a day for 30 day(s) 03/31/2023 Active amLODIPine Besylate 5 MG 1 tablet Orally Once a day for 90 days Active Immunizations Vaccine Route Administration Date Status Comme nts Shingrix Unknown 11/22/2020 Administered Shingrix Unknown 04/14/2021 Administered Hepatitis A (adult) Unknown 11/02/2018 Administered Fluzone Quad (6months&older) Unknown 06/30/2018 Adminis tered Fluzone Quad (6months&older) Unknown 07/02/2021 Adminis tered Fluzone PF Quad (6-35 months) Unknown 07/08/2016 Admini stered Fluzone PF Quad (6-35 months) Unknown 06/15/2017 Admini stered Fluzone PF Quad (6-35 months) Unknown 06/30/2018 Admini stered Fluzone PF Quad (6-35 months) Unknown 06/13/2019 Admini stered Fluzone PF Quad (6-35 months) Unknown 06/04/2020 Admini stered Fluzone PF Quad (6-35 months) Unknown 06/17/2022 Admini stered Fluzone PF Quad (6-35 months) Unknown 07/01/2023 Admini stered DT, 7 YEARS OR OLDER Unknown 11/16/1996 Administered COVID 19 Corin Unknown 12/18/2020 Administered Problems Problem Type SNOMED Code ICD Code Onset Dates Problem Status W/U Status Risk Notes Problem 01172789 Essential (prima ry) hypertension (I10) Active confirmed Problem 93981535 Hyperlipidemia, unspecified hyperlipidemia type (E78.5) Active confirmed Problem 84840501 Carpal tunnel syndrome of left wrist (G56.02) Active confirmed Problem 429751899 Acute right-side d low back pain with right-sided sciatica (M54.41) Active confirmed Problem 1812800625448 Testosterone deficiency in male (E29.1) Active confirmed Problem 21331170 Allergic rhiniti s, unspecified seasonality, unspecified trigger (J30.9) Active confirmed Problem 429043378 Gastroesophageal reflux disease, unspecified whether esophagitis present (K21.9) Active confirmed Problem 03560631 Primary hyperten ubaldo (I10) Active confirmed Vital Signs Heart Rate 72 /min 12/29/2024 Blood pressure diastolic 82 mm Hg 12/29/2024 Height 63 in 12/29/2024 Blood pressure systolic 130 mm Hg 12/29/2024 Weight 202 lbs 12/29/2024 BMI 35.78 kg/m2 12/29/2024 Encounters Encounter Location Date Provider Diagnosis [facility] [address] [place], [place] [id number] 03/17/2024 Hector [facility] Essential (primary) hypertension I10 ; Hyperlipidemia, unspecified hyperlipidemia type E78.5 and Prostate cancer screening Z12.5 [facility] [address] [place], [place] [id number] 03/24/2024 Hector [facility] Essential (primary) hypertension I10 [facility] [address] [place], [place] [id number] 05/24/2024 Hector [facility] Acute URI J06.9 and Allergic rhinitis, unspecified seasonality, unspecified trigger J30.9 [facility] [address] [place], [place] [id number] 07/12/2024 Hector [facility] Muscle strain of lef t forearm, initial encounter S56.912A [facility] [address] [place], [place] [id number] 09/14/2024 R Jose C Hughes Acute bronchitis J20 .9 [facility] [address] [place], [place] [id number] 09/22/2024 Hector [facility] Acute URI J06.9 [facility] [address] [place], [place] [id number] 10/02/2024 Hector [facility] Persistent cough R05 .3 [facility] [address] [place], [place] [id number] 12/29/2024 Hector [facility] Testosterone deficie ncy in male E29.1 [facility] [address] [place], [place] [id number] 06/06/2024 Hector [facility] Essential (primary) hypertension I10 [facility] [address] [place], [place] [id number] 07/25/2024 Hector [facility] [address] [place], [place] [id number] 08/02/2024 Hector [facility] [address] [place], [place] [id number] 10/23/2024 Hector [facility] [address] [place], [place] [id number] 01/23/2025 Hector [facility] Assessments Encounter Date Diagnosis (ICD Code) Assessment Notes Treatment Notes Treatment Clinical Notes Section Notes 03/17/2024 Essential (primary) hypertension (ICD-10 - I10) 03/17/2024 Hyperlipidemia, unspecified hyperlipidemia type (ICD-10 - E78.5) 03/24/2024 Essential (primary) hypertension (ICD-10 - I10) Much better control today 05/24/2024 Acute URI (ICD-10 - J06.9) 05/24/2024 Allergic rhinitis, unspecified seasonality, unspecified trigger (ICD-10 - J30.9) 06/06/2024 Essential (primary) hypertension (ICD-10 - I10) 09/14/2024 Acute bronchitis (ICD-10 - J20.9) Finish course of cefdinir 09/22/2024 Acute URI (ICD-10 - J06.9) 12/29/2024 Testosterone deficiency in male (ICD-10 - E29.1) 10/02/2024 Persistent cough (ICD-10 - R05.3) WBC count is normal now 07/12/2024 Muscle strain of left forearm, initial encounter (ICD-10 - S56.912A) Rest, ice, compression and elevation, Home exercise program provided to patient 03/17/2024 Prostate cancer screening (ICD-10 - Z12.5) Plan Of Treatment No Information Insurance Providers Payer Name Payer Address Payer Phone Subscriber Number Group Number Insured Name Patient Relationship to Insured Coverage Start Date Coverage End Date [employer] [address] [place] [address] [phone] [id number] LINDSAY Self - patient is the insured Medical (General) History Medical History History ICD Code Hypertension Hyperlipidemia Hiatal Hernia Esophageal Reflux Allergic Rhinitis Kidney Stones Testosterone Deficiency Carpal Tunnel Syndrome Surgical History Surgery Date(Month/Year) Colonoscopy, Normal 2014
--- OUTSIDE RECORDS SUMMARY | 2025-02-17 10:42 | XMS_ITS | Continuity of Care Document ---
Author Organization [facility] Address [address] [facility] [address] [place] [address] Care Team Providers Care Cellophane Bath Mixer Name Role Phone SHILOH NAIR Primary Care Provider [phone] Assessment Encounter Date Assessment Date Assessment LastModified [...] + total, w/ shbg, serum 2024 025 [facility] (Lab), [address], [place], [address], 02/13/2025 16:20:29 estradiol , serum 2024 [facility] [address], [place], [address], 02/13/2025 16:20:28 prolactin , serum 2024 025 [facility] (Lab), [address], [place], [address], 02/13/2025 16:20:28 PSA, serum or plasma 2024 025 [facility] (Lab), [address], [place], [address], 02/13/2025 16:20:28 CBC 2024 025 [facility] (Lab), [address], [place], [address], 02/13/2025 16:20:28 CMP, serum or plasma 2024 025 [facility] (Lab), [address], [place], [address], 02/13/2025 16:20:28 Referral None recorded. Procedures None recorded. Surgeries None recorded. Imaging None recorded. Medication Orders None recorded. Patient TargetsNo targets recorded. Patient InstructionsNo instructions recorded. Reason for Referral None Reported. Problems Name Problem SNOMED Code Status Onset Date Resolution Date Notes Provider Name and Address Organization Details Recorded Time Fatigue 40704828 Active 025 AUGUSTIN KIMBROUGH MD [address] [facility], [place], [address], [facility] - [facility] - [place] & [place] 02/13/2025 15:39:16 Problem Notes None recorded. Medical [...] Last Updated DateTime 160.02 cm 35.6 kg/m2 00434.0 7 g 98 % 98 % 61 /min 128 mm[Hg] 74 mm[Hg] Therese Allen [place] - [facility] & [place] 15:28:30 Social History None recorded. Functional Status None recorded. Mental Status None recorded. Family History Relationship Description Onset Age of this Age Resolved Age Notes LastModified by Organization Details LastModified Time Mother Hypertensive disorder tyler [email or web address] Not available 02/13/2025 15:29:10 Father Heart disease tyler [email or web address] Not available 02/13/2025 15:29:20 Medical History No medical history recorded. Past Encounters Encounter ID Performer Location Encounter Start Date Encounter Closed Date Diagnosis/Indication Diagnosis SNOMED-CT Code Diagnosis ICD10 Code Diagnosis Note [id number] AUGUSTIN KIMBROUGH MD [facility] Urology-[address] [place] [address] 02/13/2025 15:21:30 02/13/2025 15:44:10 Fatigue 27540528 R53.83 Health Concerns Section Related Observation LastModified by Organization Detai ls LastModified Time None Recorded Concern Status LastModified by Organization Details LastModified Time None Recorded Payers Encounter Date Sequence Insurance Name Policy Number Policy Aguayo Covered Member ID Aguayo Member ID Guarantor Name 02/13/2025 1 [id number] Rick Yost [id number] Rick Yost Notes Date Note Type Note Provider Name and Address Organization Details Recorded Time 02/13/2025 text/html 02/13/25 19-rutb-uvk-male referred to my office for testosterone deficiency in male. Rick Yost is a 64-year-old male who presents for a new patient visit regarding low testosterone. He has a history of receiving testosterone injections approximately two to three years ago under the care of Dr. Palomino at [facility]. The injections were administered every two weeks [...] 293.9, Cortisol AM 15.8 AUGUSTIN KIMBROUGH MD [address] , [place], [address], [facility] & [place] 02/13/2025 16:27:23
--- OUTSIDE RECORDS SUMMARY | 2025-02-17 10:43 | XMS_ITS | Patient Health Record ---
Author Organization [facility] Address [address] [place] [address] Care Team Providers Care Podopediatrician Name Role Phone FatimahCarlton weinberg Primary Care Provider [phone] Migration, Provider Unavailable Unavailable Allergies No Known Allergies Reason For Referral No Information Medications Medication SIG (Take, Route, Frequency, Duration) [...] discontinue and re-order from Quick Search* Active Immunizations Vaccine Route Administration Date Status Comme nts Influenza-Fluzone 3+years (NON-MEDICARE) IM Intramuscular 07/27/2015 Administered Influenza-Fluzone 3+years (NON-MEDICARE) IM Intramuscular 07/08/2016 Administered Influenza-Fluzone 3+years (NON-MEDICARE) IM Intramuscular 06/15/2017 Administered Lot # [id number] 03/12/18 Influenza-Fluzone 3+years (NON-MEDICARE) Unknown 06/30/2018 Administered Hep A Adult 2 Dose IM Intramuscular 11/02/2018 Administered FLUZONE 6MO - OLDER IM Intramuscular 06/24/2019 Administered FLUZONE 6MO - OLDER IM Intramuscular 06/05/2020 Administered Problems Problem Type SNOMED Code ICD Code Onset Dates Problem Status W/U Status Risk Notes Problem 86629718 Other chronic pain (G89.29) Active confirmed Problem 091274918 Hyperlipemia, idiopathic familial (E78.5) Active confirmed Problem 053217460 GERD without esophagitis (K21.9) Active confirmed Problem 93968838 Hypertension, essential (I10) Active confirmed Problem 15245905 Androgen deficiency (E29.1) Active confirmed Problem 528145089 Seasonal allergi c rhinitis due to other allergic trigger (J30.89) Active confirmed Problem 84431484 Hyperplastic polyp of ascending colon (K63.5) Active confirmed Problem 1272502766036 Testosterone deficiency (E34.9) Active confirmed Encounters Encounter Location Date Provider Diagnosis [facility] [address] [place] [address] 12/16/2024 Provider Migration Plan Of Treatment Pending Test Test Name Order Date Venous Doppler : Lower Extremity 014 Ultrasound : Abdominal Aorta 12/02/2020 NVC/EMG STUDY OF UPPER EXTREMITIES 06/14 Future Test Test Name Order Date H-CMP 04/03/2016 H-LIPID PANEL 04/03/2016 M-Basic Metabolic Panel 12/23/2020 Insurance Providers Payer Name Payer Address Payer Phone Subscriber Number Group Number Insured Name Patient Relationship to Insured Coverage Start Date Coverage End Date [facility] [id number] [place] [address] [id number] Rick Yost Self - patient is the insured Medications Administered Medication Instructions Date of Administration Dosage Notes Testosterone 02/21/2022 1 Testosterone 03/07/2022 1 mL Lot: [id number] Exp: 09/2024 Testosterone 03/21/2022 1 Testosterone 04/08/2022 1 mL lot:[id number] exp:10/07 Testosterone 04/18/2022 1 mL Testosterone 05/02/2022 1 mL Testosterone 05/16/2022 1 mL Testosterone 05/30/2022 1 mL Testosterone 06/13/2022 1 mL Lot #[id number] Kenalog 05/10/2014 1 mL Medical (General) History Medical History History ICD Code HTN, Heart murmur GERD HLD colonoscopy March 2017 with benign hyperp lastic polyp CTS with postive EMG 07/03 Surgical History Surgery Date(Month/Year) Tear duct removal 2006 Deviated Septum 1998
--- OUTSIDE RECORDS SUMMARY | 2025-02-17 10:43 | XMS_ITS | Clinical Summary ---
Author Organization [facility] Address [address] [place] [address] Phone [email or web address] Care Team Providers Care Navy Fighter Pilot Name Role Phone Unavailable Primary Care Provider Unavailabl e Allergies No known active allergies Medications lisinopril (ZESTRIL) 10 MG tablet Take 10 mg by mouth 2 (two) times a day. 05/13/2020 Active amLODIPine (NORVASC) 2.5 MG tablet TAKE 1 TABLET BY MOUTH ONCE DAILY FOR 90 DAYS 04/01/2020 Active pantoprazole (PROTONIX) 40 MG EC tablet Take 40 mg by mouth 1 (one) time each day. 05/21/2020 Active atorvastatin (LIPITOR) 40 MG tablet TAKE 1 TABLET BY MOUTH ONCE DAILY FOR 90 DAYS 05/13/2020 Active fluticasone (FLONASE) 50 MCG/ACT nasal spray USE ONE SPRAY IN EACH NOSTRIL IN THE MORNING AND EVENING 03/11/2020 Active Active Problems Problem Noted Date Diagnosed Date Allergic rhinitis 05/28/2021 Androgen deficiency 05/28/2021 Benign neoplasm of colon 05/28/2021 Chronic pain 05/28/2021 Essential hypertension 05/28/2021 Gastroesophageal reflux disease 05/28/2021 Hyperlipidemia 05/28/2021 Social History Tobacco Use Types Packs/Day Years Used Date Smoking Tobacco: Former Smokeless Tobacco: Never Comments:quit over 30 yrs ag o Intimate Partner Violence Answer Date R ecorded Insults You Not on file 12/25/2020 Threatens You Not on file 12/25/2020 Screams at You Not on file 12/25/2020 Physically Hurt Not on file 12/25/2020 Intimate Partner Violence Score Not on file 12/25/2020 Stress Answer Date Recorded Stress in your Life Not on file 07/17/2024 Dealing with Stress 3 07/17/2024 Sex and Gender Information Value Date Recorded Sex Assigned at Not on file Legal Sex Male 9:56 AM CDT Gender Identity Not on file Sexual Orientation Not on file Last Filed Vital Signs Vital Sign Reading Time Taken Comments Blood Pressure - - Pulse 64 05/30/2021 2:08 PM EDT Temperature 36.7 C (98 F) 09/30/2021 6:20 PM EST Respiratory Rate - - Oxygen Saturation 97% 05/30/2021 2:08 PM EDT Inhaled Oxygen Concentration - - Weight - - Height - - Body Mass Index - - Plan of Treatment Health Maintenance Due Date Last Done Comments Dental Cleaning/Exam 1962 HIV Screening 1960 Hepatitis C Screening 1962 Annual Preventive Exam 1980 Hep B Infection Screening - Triple Screen 1980 Colorectal Cancer Screening 1992 Tetanus Diphtheria and Pertussis Immunization (1 - Tdap) 11/17/1996 11/16/1996 Covid-19 Immunization (2 - season) 2024 12/18/2020 Influenza Immunization (Season Ended) 2025 07/01/2023, 06/17/2022, 07/02/2021, Additional history exists Hepatitis A Immunization Aged Out 11/02/2018 No longer eligible based on patient's age to complete this topic Zoster Immunization Completed 04/14/2021, HIB Immunization Aged Out No longer e ligible based on patient's age to complete this topic HPV Immunization Aged Out No longer e ligible based on patient's age to complete this topic Hepatitis B Immunization Aged Out No longer eligible based on patient's age to complete this topic Pneumococcal: Ped (0 to 5 Yrs) and At-Risk Member (6 to 64 Yrs) Aged Out No longer eligible based on patient's age to complete this topic Polio Immunization Aged Out No longer eligible based on patient's age to complete this topic Insurance OPT OUT NO COPAY NB
[2025-02-17 11:32] LABS: Basophils % 0.2 % (0.1-2.0); Eosinophils # 0.1 Kmm3 (0.0-0.4); Eosinophils % 1.9 % (0.1-12.0); Hematocrit 43.7 % (42.0-52.0); Hemoglobin 14.6 g/dL (14.1-18.0); Immature Granulocytes # 0.02 10^3uL; Immature Granulocytes % 0.3 %; Lymphocytes % 32.4 % (10-50); Mean Corpuscular HGB Conc 33.4 g/dL (31.8-35.4); Mean Corpuscular Hemoglobin 30.5 pg (27.0-31.2); Mean Corpuscular Volume 91.2 fl (80-94); Mean Platelet Volume 12.3 fl (7.4-10.4); Monocytes # 0.6 K/mm3 (0.1-1.0); Monocytes % 9.5 % (1.7-9.3); Neutrophils # 3.5 K/mm3 (1.8-7.8); Neutrophils % 55.7 % (37.0-80.0); Nucleated Red Blood Cells # 0 10^3/uL; Nucleated Red Blood Cells % 0 %; Platelet Count 141 K/mm3 (142-424); Red Blood Count 4.79 M/mm3 (4.60-6.20); Red Cell Distribution Width 12.8 % (11.5-17.5); Red Cell Distribution Width-SD 42.5 fL; White Blood Count 6.2 K/mm3 (4.8-10.8)
[2025-02-17 11:48] LABS: Albumin Level 4.6 g/dl (3.5-5.0); Chloride 107 mmol/L (98-107); Potassium 4.1 mmoL/L (3.5-5.1); Sodium 138 mmol/L (136-145)
[2025-02-17 11:51] LABS: Alanine Aminotransferase 32 U/L (12-78); Albumin/Globulin Ratio 1.8 (1.1-1.8); Alkaline Phosphatase 64 U/L (38-126); Anion Gap 7.1 mEq/L (5-15); Aspartate Amino Transferase 30 U/L (17-59); Bilirubin,Total 0.6 mg/dl (0.2-1.3); Blood Urea Nitrogen 21 mg/dl (9-20); Calcium 9.5 mg/dl (8.4-10.2); Carbon Dioxide 28 mmol/L (22.0-30.0); Estimated Glomerular Filt Rate 98 ml/min (>60); GFR (African American) 119 ML/MIN (>60); Globulin 2.6 g/dL (1.3-3.2); Glucose 88 mg/dl (74-100); Total Protein,Serum 7.2 g/dl (6.3-8.2)
[2025-02-17 12:50] LABS: Prostate Specific Ag Screen 1.3 ng/ml (0.0-4.0)
[2025-02-18 09:24] LABS: Estradiol 24.4 pg/mL (7.6-42.6); Prolactin 4.7 ng/mL (3.6-25.2)
== END 2025-02-17 23:59 | disposition home or self-care (01) ==
LOC: LAB 10:40
PROVIDERS: PCP Family Medicine; Visit Provider Urology
DX: R53.83 Other fatigue (principal)
CPT/HCPCS: 36415; 80053; 82670; 84146; 84402; 84403; 85025; G0103

== ENCOUNTER 2025-07-14 10:37 | Outpatient (CLI) | payer BC, SELFPAY ==
--- OUTSIDE RECORDS SUMMARY | 2024-03-17 06:00 | XMS_ITS ---
Author Organization [facility] Address [address] [place] [id number] Care Team Providers Care Delivery Architect Name Role Phone Hector Nair Unavailable [phone] Allergies No Known Allergies Results Component Value Reference Range Notes P-Comprehensive Metabolic Pa luis m (CMP) Reviewed date:03/20/2024 10:38:34 AM Interpretation:Normal Performing Lab: Notes/Report: Test performed by [facility] [address] [place] [address] , [address], [place] [address] Ramon Vargas MD, Aircraft Navigator CLIA: [id number] Sodium 142 135-145 mmol/L Potassium 4.7 3.5-5.3 mmol/L Chloride 107 97-108 mmol/L CO2 23 22-32 mmol/L Glucose 95 65-99 mg/dL BUN 19 8-23 mg/dL Creatinine 0.78 0.70-1.30 mg/dL Calcium 9.5 8.6-10.4 mg/dL eGFR by Creatinine 101 >59 mL/min/1.73m2 Protein 6.9 6.0-8.3 g/dL Albumin 4.7 3.5-5.3 g/dL Alkaline Phosphatase 64 40-129 IU/L ALT (SGPT) 41 <5-55 IU/L AST (SGOT) 24 <5-46 IU/L Bilirubin, Total 0.7 <0.2-1.2 mg/dL A/G Ratio 2.1 1.1-2.5 mg/dL P-Lipid Panel Reviewed date:03/20/2024 10:38:34 AM Interpretation:Normal Performing Lab: Notes/Report: Test performed by [facility], [facility] , [address], [place] [address] Ramon Vargas MD, Aircraft Navigator CLIA: [id number] Cholesterol 127 <200 mg/dL Triglycerides 59 <150 mg/dL HDL Cholesterol 51 >39 mg/dL Cholesterol / HDL Ratio 2.49 0.00-4.99 Ratio Non-HDL Cholesterol 76 <130 mg/dL LDL Cholesterol (Calculation) 64 <130 mg/dL LDL Cholesterol Levels* Less than 100 mg/dL Optimal 100 to 129 mg/dL Near Optimal/ Above Optimal 130 to 159 mg/dL Borderline High 160 to 189 mg/dL High 190 mg/dL and above Very High * Categories as recommended by the 2004 ATPIII guidelines LDL/HDL Ratio 1.3 <3.3 Ratio LDL Cholesterol Patient History Test Date: 01/15/2022 LDL Results: 84 Units: mg/dL % Change: - Test Date: 03/31/2023 LDL Results: 77 Units: mg/dL % Change: -8% Test Date: 03/17/2024 LDL Results: 64 Units: mg/dL % Change: -16% P-PSA Reviewed date:03/20/2024 10:38:34 AM Interpretation:Normal Performing Lab: Notes/Report: Test performed by [facility] [address] [place], [place] [address] , [facility] [address], [place] [address] Ramon Vargas MD, Aircraft Navigator CLIA: [id number] PSA 0.92 <4.00 ng/mL Please note this is an ultrasensitive PSA assay with a lower limit of detection of 0.014 ng/mL. This test is performed by the Tab ECLIA methodology. Values obtained with different assay methods or kits cannot be directly compared. P-TSH reflex to FT4 Reviewed date:03/20/2024 10:38:34 AM Interpretation:Normal Performing Lab: Notes/Report: Test performed by [facility] [address] [place] [address] , [address], [place] [address] Ramon Vargas MD, Aircraft Navigator CLIA: [id number] TSH reflex to FT4 1.61 0.43-5.25 mU/L P-Microalbumin/Creatinine, R andom Urine Sample Reviewed date:03/20/2024 10:38:35 AM Interpretation:Normal Performing Lab: Notes/Report: Test performed by [facility] [address] [place] [address] , [address], [place] [address] Ramon Vargas MD, Aircraft Navigator CLIA: [id number] Albumin/Creatinine Ratio, Urine 7 0-30 ug/mg Microalbumin, Urine, Random 0.9 Creatinine, Urine 138.0 REASON FOR VISIT B/P running high Medications Medication SIG (Take, Route, Frequency, Duration) Notes Start Date End Date Status amLODIPine Besylate 5 MG 1 tablet Orally Once a day; Duration: 90 days 03/17/2024 Active Fluticasone Propionate 50 MCG/ACT 1 spray(s) in each nostril Two times a day; Duration: 90 days Active Meloxicam 15 MG 1 tablet Orally Once a day; Duration: 30 day(s) 03/31/2023 Active Cetirizine HCl 10 MG 1 tab(s) orally onc e a day; Duration: 90 days Active Pantoprazole Sodium 40 MG 1 tab(s) orall y once a day; Duration: 90 days Active Lisinopril 30 MG 1 tab(s) orally once a day Active Glucosamine & Fish Oil 728-068-48-40 MG 3 cap(s) orally once a day Active Atorvastatin Calcium 40 MG 1 tab(s) oral ly once a day; Duration: 90 days Active hydroCHLOROthiazide 12.5 MG 1 capsule in the morning Orally Once a day; Duration: 90 days 03/17/2024 Active Lisinopril 10 MG 1 tab(s) orally At Bed Time Active Potassium 99 MG 1 tablet Orally Once a day; Duration: 30 day(s) Active Vital Signs Blood pressure systolic 160 mm Hg 03/17/20 24 Blood pressure diastolic 100 mm Hg 024 Heart Rate 81 /min 03/17/2024 Height 63 in 03/17/2024 Weight 201.4 lbs 03/17/2024 BMI 35.67 kg/m2 03/17/2024 Encounters Encounter Location Date Provider Diagnosis [facility] [address] [phone] 03/17/2024 Hector Nair Essential (primary) hypertension I10 ; Hyperlipidemia, unspecified hyperlipidemia type E78.5 and Prostate cancer screening Z12.5 Assessments Encounter Date Diagnosis (ICD Code) Assessment Notes Treatment Notes Treatment Clinical Notes Section Notes 03/17/2024 Essential (primary) hypertension (ICD-10 - I10) 03/17/2024 Hyperlipidemia, unspecified hyperlipidemia type (ICD-10 - E78.5) 03/17/2024 Prostate cancer screening (ICD-10 - Z12.5) Plan Of Treatment Medication Medication Name Sig Start Date Stop Date Notes amLODIPine Besylate 5 MG 1 tablet Orally Once a day; Duration: 90 days 03/17/2024 Lisinopril 30 MG 1 tab(s) orally once a day amLODIPine Besylate 2.5 MG 1 tab(s) orally once a day hydroCHLOROthiazide 12.5 MG 1 capsule in the morning Orally Once a day; Duration: 90 days 03/17/2024 Lisinopril 10 MG 1 tab(s) orally At Bed Time Next Appt Details Follow Up: 1 Week, Reason: Progress Notes * ZEFERINO MANCINIEDOB:1960 (65 yo M)Acc No.[id number]:03/17/2024 Progress Notes Patient: HAYDEE GAINES Provider: Devin Nair M.D. :1960 A ge:63 Y S ex:Male Date:03/17/2024 Address:[address] [place] [address] [place], [id number] Subjective: * Chief Complaints: * 1 . B/P running high. * HPI: C ardiology: 63 year old male presents with c/o Blood Pressure Elevated P t states he went for a Pre-OP physical on Wednesday and his bp was 165/100. Pt has since been checking bp at home and it has stayed around that as well even after taking bp med. * ROS: D ERMATOLOGY: no R austin. n o H stanley. G ASTROENTEROLOGY: no N ausea. n o V omiting. U ROLOGY: no D ifficulty urinating. n o B lood in urine. * Medical History: H ypertension, Hyperlipidemia, Hiatal Hernia, Esophageal Reflux, Allergic Rhinitis, Kidney Stones, Testosterone Deficiency, Carpal Tunnel Syndrome. * Surgical History: C olonoscopy - normal 2014. * Hospitalization/Major Diagno stic Procedure: D enies Past Hospitalization. * Family History: F ather: , diagnosed with Heart Disease. M other: , diagnosed with Hypertension, Stroke, Diabetes. 1 brother(s) , 2 sister(s) . 1 son(s) , 1 daughter(s) . . * Social History: C URRENT TOBACCO USE: No . C affeine: no. Alcohol: no. * Medications: T aking Potassium 99 MG Tablet 1 tablet Orally Once a day , Taking Glucosamine & Fish Oil 924-978-58-40 MG Capsule 3 cap(s) orally once a day , Taking Atorvastatin Calcium 40 MG Tablet 1 tab(s) orally once a day , Taking Meloxicam 15 MG Tablet 1 tablet Orally Once a day , Taking Lisinopril 10 MG Tablet 1 tab(s) orally At Bed Time , Taking Lisinopril 30 MG Tablet 1 tab(s) orally once a day , Taking Fluticasone Propionate 50 MCG/ACT Suspension 1 spray(s) in each nostril Two times a day , Taking amLODIPine Besylate 2.5 MG Tablet 1 tab(s) orally once a day , Taking Pantoprazole Sodium 40 MG Tablet Delayed Release 1 tab(s) orally once a day , Taking Cetirizine HCl 10 MG Tablet 1 tab(s) orally once a day , Medication List reviewed and reconciled with the patient * Allergies: N .K.D.A. Objective: * Vitals: W t:201.4, Temp:97.8, BP:160/100, HR:81, Nurse:tommy, Ht: 63, BMI:35.67. * Examination: C ardiology: General Appearance: p leasant, NAD. H eart sounds: R RR, normal S1, S2. L ungs: c lear, no rales or wheezes. Assessment: * Assessment: 1. E ssential (primary) hypertension - I10 (Primary) 2 . H yperlipidemia, unspecified hyperlipidemia type - E78.5 3 . P rostate cancer screening - Z12.5? Plan: * Treatment: Value Reference Range A /G Ratio 2.1 1.1-2.5 - mg/dL * A lbumin 4.7 3.5-5.3 - g/dL * A lkaline Phosphatase 64 40-129 - IU/L * A LT (SGPT) 41 <5-55 - IU/L * A ST (SGOT) 24 <5-46 - IU/L * B ilirubin, Total 0.7 <0.2-1.2 - mg/dL * B UN 19 8-23 - mg/dL * C alcium 9.5 8.6-10.4 - mg/dL * C hloride 107 97-108 - mmol/L * C O2 23 22-32 - mmol/L * C reatinine 0.78 0.70-1.30 - mg/dL * G lucose 95 65-99 - mg/dL * P otassium 4.7 3.5-5.3 - mmol/L * S odium 142 135-145 - mmol/L * P rotein 6.9 6.0-8.3 - g/dL * e GFR by Creatinine 101 >59 - mL/min/1.73m2 * Ania Sanchez 03/20/2024 10:38 :14 AM > pt informed of normal test results ?LAB: P-Microalbumin/Creatinine, Random Urine Sample (Collection Date & Time - 03/17/2024 09:30 AM)?Normal* Value Reference Range A lbumin/Creatinine Ratio, Urine 7 0-30 - ug /mg * C reatinine, Urine 138.0 - mg/dL * M icroalbumin, Urine, Random 0.9 - mg/dL * Ania Sanchez 03/20/2024 10:38 :14 AM > pt informed of normal test results 2.?Hyperlipidemia, unspecified hyperlipidemia type?LAB: P-Comprehensive Metabolic Panel (CMP) (Collection Date & Time - 03/17/2024 09:30 AM)?Normal* Value Reference Range A /G Ratio 2.1 1.1-2.5 - mg/dL * A lbumin 4.7 3.5-5.3 - g/dL * A lkaline Phosphatase 64 40-129 - IU/L * A LT (SGPT) 41 <5-55 - IU/L * A ST (SGOT) 24 <5-46 - IU/L * B ilirubin, Total 0.7 <0.2-1.2 - mg/dL * B UN 19 8-23 - mg/dL * C alcium 9.5 8.6-10.4 - mg/dL * C hloride 107 97-108 - mmol/L * C O2 23 22-32 - mmol/L * C reatinine 0.78 0.70-1.30 - mg/dL * G lucose 95 65-99 - mg/dL * P otassium 4.7 3.5-5.3 - mmol/L * S odium 142 135-145 - mmol/L * P rotein 6.9 6.0-8.3 - g/dL * e GFR by Creatinine 101 >59 - mL/min/1.73m2 * DanielAnia 03/20/2024 10:38 :14 AM > pt informed of normal test results ?LAB: P-Lipid Panel (Collection Date & Time - 03/17/2024 09:30 AM)?Normal* Value Reference Range C holesterol / HDL Ratio 2.49 0.00-4.99 - Ratio * C holesterol 127 <200 - mg/dL * H DL Cholesterol 51 >39 - mg/dL * L DL Cholesterol (Calculation) 64 <130 - mg/d L * L DL/HDL Ratio 1.3 <3.3 - Ratio * N on-HDL Cholesterol 76 <130 - mg/dL * T riglycerides 59 <150 - mg/dL * Ania Sanchez 03/20/2024 10:38 :14 AM > pt informed of normal test results ?LAB: P-TSH reflex to FT4 (Collection Date & Time - 03/17/2024 09:30 AM)? Normal* Value Reference Range T SH reflex to FT4 1.61 0.43-5.25 - mU/L * DanielAnia 03/20/2024 10:38 :14 AM > pt informed of normal test results 3.?Prostate cancer screening?LAB: P-PSA (Collection Date & Time - 03/17/2024 09:30 AM)?Normal* Value Reference Range P SA 0.92 <4.00 - ng/mL * DanielAnia 03/20/2024 10:38 :14 AM > pt informed of normal test results * Follow Up: 1 Week * Images: Billing Information: * Visit Code: 50219 Office Visit, Est Pt., Level 4. * Procedure Codes: * Electronic signature of Claudine Nair MD on 07/14/2025 at 10:41 AM EDT Sign off status: Pending * Provider: Devin Nair M.D. Date: 0 03/17/2024 Generated for Mansoor davalos/Fidelia/eTiwonasmbeverley on: 09/13/2024 10:41 AM EDT History and Physical Notes * HPI (History of Present Illness) Category Sub-Category Detail Notes Category Not es Cardiology Blood Pressure Elevated Pt state s he went for a Pre-OP physical on Wednesday and his bp was 165/100. Pt has since been checking bp at home and it has stayed around that as well even after taking bp med Examination Category Sub-Category Detail Notes Category Not es Cardiology Lungs: clear, no rales or wheezes Heart sounds: RRR, normal S1, S2 General Appearance: pleasant, NAD
--- OUTSIDE RECORDS SUMMARY | 2024-03-24 11:45 | XMS_ITS ---
[facility] Address [address] [facility] [address] [place] [id number] Care Team Providers Care Drawer Upfitter Name Role Phone Hector Nair Unavailable [phone] Allergies No Known Allergies REASON FOR VISIT 1 week follow up Medications Medication SIG (Take, Route, Frequency, Duration) Notes Start Date End Date Status Lisinopril 10 MG 1 tab(s) orally At Bed Time Active Cetirizine HCl 10 MG 1 tab(s) orally onc e a day; Duration: 90 days Active Fluticasone Propionate 50 MCG/ACT 1 spray(s) in each nostril Two times a day; Duration: 90 days Active Pantoprazole Sodium 40 MG 1 tab(s) orall y once a day; Duration: 90 days Active Meloxicam 15 MG 1 tablet Orally Once a day; Duration: 30 day(s) 03/31/2023 Active hydroCHLOROthiazide 12.5 MG 1 capsule in the morning Orally Once a day 03/17/2024 Active Potassium 99 MG 1 tablet Orally Once a day; Duration: 30 day(s) Active amLODIPine Besylate 5 MG 1 tablet Orally Once a day 03/17/2024 Active Glucosamine & Fish Oil 973-571-38-40 MG 3 cap(s) orally once a day Active Atorvastatin Calcium 40 MG 1 tab(s) oral ly once a day; Duration: 90 days Active Lisinopril 30 MG 1 tab(s) orally once a day Active Vital Signs Blood pressure systolic 122 mm Hg 03/24/20 24 Blood pressure diastolic 78 mm Hg 024 Heart Rate 90 /min 03/24/2024 Height 63 in 03/24/2024 Weight 206 lbs 03/24/2024 BMI 36.49 kg/m2 03/24/2024 Encounters Encounter Location Date Provider Diagnosis [facility] [address] [place] [phone] 03/24/2024 Hector Nair Essential (primary) hypertension I10 Assessments Encounter Date Diagnosis (ICD Code) Assessment Notes Treatment Notes Treatment Clinical Notes Section Notes 03/24/2024 Essential (primary) hypertension (ICD-10 - I10) Much better control today Plan Of Treatment Medication Medication Name Sig Start Date Stop Date Notes Lisinopril 10 MG 1 tab(s) orally At Bed Time hydroCHLOROthiazide 12.5 MG 1 capsule in the morning Orally Once a day 03/17/2024 amLODIPine Besylate 5 MG 1 tablet Orally Once a day 2023 Lisinopril 30 MG 1 tab(s) orally once a day Treatment Notes Assessment Notes Essential (primary) hypertension Much be tter control today Next Appt Details Follow Up: 4 Weeks, Reason: Progress Notes * LIVE DANIELLENIDHIEDOB:1960 (65 yo M)Acc No.[id number]:03/24/2024 Progress Notes Patient: HAYDEE GAINES Provider: Devin Nair M.D. :1960 A ge:63 Y S ex:Male Date:03/24/2024 Address:[address] [place] [address] [id number] Subjective: * Chief Complaints: * 1 . 1 week follow up. * HPI: C ardiology: 63 year old male presents with c/o Blood Pressure Elevated P t here for one week f/u on hypertension. States that he has been checking bp at home and has steadily come down since increasing Amlodipine and starting HCTZ. * ROS: D ERMATOLOGY: no R austin. [...] Heart Disease. M other: , diagnosed with Diabetes, Hypertension, Stroke. 1 brother(s) , 2 sister(s) . 1 son(s) , 1 daughter(s) . . * Social History: C URRENT TOBACCO USE: No . C affeine: no. Alcohol: no. * Medications: T aking Potassium 99 MG Tablet 1 tablet Orally Once a day , Taking Glucosamine & Fish Oil 551-423-11-40 MG Capsule 3 cap(s) orally once a day , Taking Atorvastatin Calcium 40 MG Tablet 1 tab(s) orally once a day , Taking Meloxicam 15 MG Tablet 1 tablet Orally Once a day , Taking Fluticasone Propionate 50 MCG/ACT Suspension 1 spray(s) in each nostril Two times a day , Taking Pantoprazole Sodium 40 MG Tablet Delayed Release 1 tab(s) orally once a day , Taking Cetirizine HCl 10 MG Tablet 1 tab(s) orally once a day , Taking Lisinopril 10 MG Tablet 1 tab(s) orally At Bed Time , Taking Lisinopril 30 MG Tablet 1 tab(s) orally once a day , Taking hydroCHLOROthiazide 12.5 MG Capsule 1 capsule in the morning Orally Once a day , Taking amLODIPine Besylate 5 MG Tablet 1 tablet Orally Once a day , Medication List reviewed and reconciled with the patient * Allergies: N .K.D.A. Objective: * Vitals: W t:206, Temp:98.0, BP:122/78, HR:90, Nurse:tommy, Ht: 63, BMI:36.49. * Examination: C ardiology: General Appearance: p leasant, NAD. H eart sounds: R RR, normal S1, S2. L ungs: c lear, no rales or wheezes. Assessment: * Assessment: 1. E ssential (primary) hypertension - I10 (Primary) Plan: * Treatment: * Follow Up: 4 Weeks * Images: Billing Information: * Visit Code: 29997 Office Visit, Est Pt., Level 3. * Procedure Codes: * Electronic signature of Claudine Nair MD on 07/14/2025 at 10:43 AM EDT Sign off status: Pending * Provider: Devin Nair M.D. Date: 0 03/24/2024 Generated for Mansoor davalos/Fidelia/Deb on: 09/13/2024 10:43 AM EDT History and Physical Notes * HPI (History of Present Illness) Category Sub-Category Detail Notes Category Not es Cardiology Blood Pressure Elevated Pt here for one week f/u on hypertension. States that he has been checking bp at home and has steadily come down since increasing Amlodipine and starting HCTZ Examination Category Sub-Category Detail Notes Category Not es Cardiology Lungs: clear, no rales or wheezes Heart sounds: RRR, normal S1, S2 General Appearance: pleasant, NAD
--- OUTSIDE RECORDS SUMMARY | 2024-05-24 11:45 | XMS_ITS ---
Author Organization [facility] Address [address] [place] [phone] Care Team Providers Care Geodetic Advisor Name Role Phone Hector Nair Unavailable [phone] Allergies No Known Allergies Results Component Value Reference Range Notes CBC Fingerstick (in house) Reviewed date:05/25/2024 09:42:21 AM Interpretation: Performing Lab: Notes/Report: wbc 7.7 3.5 - 10 lym 34.1% 15 - 50 mid 7.8% 2 - 15 gran 58.1% 35 - 80 rbc 4.91 3.5 - 5.5 hgb 15.1 11.5 - 16.5 hct 46.0 35 - 55 mcv 93.6 75 - 100 mch 30.7 25 - 35 mchc 32.8 31 - 38 plat 111 100 - 400 REASON FOR VISIT coughing Medications Medication SIG (Take, Route, Frequency, Duration) Notes Start Date End Date Status Meloxicam 15 MG 1 tablet Orally Once a day; Duration: 30 day(s) 03/31/2023 Active Glucosamine & Fish Oil 005-960-21-40 MG 3 cap(s) orally once a day Active Pantoprazole Sodium 40 MG 1 tab(s) orall y once a day; Duration: 90 days Active Fluticasone Propionate 50 MCG/ACT 1 spray(s) in each nostril Two times a day; Duration: 90 days Active Potassium 99 MG 1 tablet Orally Once a day; Duration: 30 day(s) Active Atorvastatin Calcium 40 MG 1 tab(s) oral ly once a day; Duration: 90 days Active Montelukast Sodium 10 MG 1 tablet Orally Once a day; Duration: 90 days 05/24/2024 Active Lisinopril 30 MG Take 1 tablet by mouth once daily; Duration: 90 Active amLODIPine Besylate 2.5 MG Take 1 tablet by mouth once daily; Duration: 90 Active Promethazine-DM 6.25-15 MG/5ML 5 ml as n eeded Orally every 6 hrs 05/24/2024 Active hydroCHLOROthiazide 12.5 MG 1 capsule in the morning Orally Once a day 03/17/2024 Active Cetirizine HCl 10 MG 1 tab(s) orally onc e a day; Duration: 90 days Active Lisinopril 10 MG 1 tab(s) orally At Bed Time; Duration: 90 days Active Vital Signs Blood pressure systolic 130 mm Hg 05/24/20 24 Blood pressure diastolic 82 mm Hg 024 Heart Rate 88 /min 05/24/2024 Height 63 in 05/24/2024 Weight 206.8 lbs 05/24/2024 BMI 36.63 kg/m2 05/24/2024 Encounters Encounter Location Date Provider Diagnosis [facility] [address] [place], [place] [phone] 05/24/2024 Hector Nair Acute URI J06.9 and Allergic rhinitis, unspecified seasonality, unspecified trigger J30.9 Assessments Encounter Date Diagnosis (ICD Code) Assessment Notes Treatment Notes Treatment Clinical Notes Section Notes 05/24/2024 Acute URI (ICD-10 - J06.9) 05/24/2024 Allergic rhinitis, unspecified seasonality, unspecified trigger (ICD-10 - J30.9) Plan Of Treatment Medication Medication Name Sig Start Date Stop Date Notes Montelukast Sodium 10 MG 1 tablet Orally Once a day; Duration: 90 days 05/24/2024 Promethazine-DM 6.25-15 MG/5ML 5 ml as n eeded Orally every 6 hrs 05/24/2024 Next Appt Details Follow Up: via phone to repo rt progress, Reason: Progress Notes * JOHNNIE MANCINIOB:1960 (65 yo M)Acc No.[id number]:05/24/2024 Progress Notes Patient: HAYDEE GAINES Provider: Devin Nair M.D. :1960 A ge:64 Y S ex:Male Date:05/24/2024 Address:[address] [place] [address] [id number] Subjective: * Chief Complaints: * 1 . Coughing. * HPI: E NT/respiratory: 64 year old male presents with c/o cough P t complains of greenish yellow sputum production cough for a couple weeks. Associated with nasal and chest congestion. * ROS: D ERMATOLOGY: no R austin. [...] day , Taking Glucosamine & Fish Oil 575-186-17-40 MG Capsule 3 cap(s) orally once a day , Taking Meloxicam [...] morning Orally Once a day , Taking Lisinopril 10 MG Tablet 1 tab(s) orally At Bed Time , Taking Lisinopril 30 MG Tablet Take 1 tablet by mouth once daily , Taking Atorvastatin Calcium 40 MG Tablet 1 tab(s) orally once a day , Taking amLODIPine Besylate 2.5 MG Tablet Take 1 tablet by mouth once daily , Medication List reviewed and reconciled with the patient * Allergies: N .K.D.A. Objective: * Vitals: W t:206.8, Temp:97.8, BP:130/82, HR:88, O2 Sat:98% on RA, Nurse:JULIANA, Ht: 63, BMI:36.63. Assessment: * Assessment: 1. A cute URI - J06.9 (Primary) 2 . A llergic rhinitis, unspecified seasonality, unspecified trigger - J30.9 Plan: * Treatment: Value Reference Range w bc 7.7 3.5 - 10 * l ym 34.1% 15 - 50 * m id 7.8% 2 - 15 * g ran 58.1% 35 - 80 * r bc 4.91 3.5 - 5.5 * h gb 15.1 11.5 - 16.5 * h ct 46.0 35 - 55 * m cv 93.6 75 - 100 * m ch 30.7 25 - 35 * m chc 32.8 31 - 38 * p lat 111 100 - 400 * Valerie Garcia 05/24/2024 3:57:10 PM > , Provider reviewed results while patient in office. 2.?Allergic rhinitis, unspecified seasonality, unspecified trigger? Start Montelukast Sodium Tablet, 10 MG, 1 tablet, Orally, Once a day, 90 days, 90 Tablet, Refills 1.?? * Procedure Codes: 3 6416 CAPILLARY BLOOD DRAW, 49239 CBC WITH AUTO DIFF * Follow Up: v ia phone to report progress * Images: Billing Information: * Visit Code: 62479 Office Visit, Est Pt., Level 3. * Procedure Codes: 12255 CAPILLARY BLOOD DRAW. 48334 CBC WITH AUTO DIFF. * Electronic signature of Claudine Nair MD on 07/14/2025 at 10:43 AM EDT Sign off status: Pending * Provider: Devin Nair M.D. Date: 0 05/24/2024 Generated for Mansoor davalos/Fidelia/Deb on: 1 09/13/2024 10:43 AM EDT History and Physical Notes * HPI (History of Present Illness) Category Sub-Category Detail Notes Category Not es ENT/respiratory cough Pt complains of greenish yellow sputum production cough for a couple weeks. Associated with nasal and chest congestion
--- OUTSIDE RECORDS SUMMARY | 2024-07-12 09:45 | XMS_ITS ---
[facility] Address [address] [facility] [address] [place] [id number] Care Team Providers Care Culinary Internship Name Role Phone Hector Nair Unavailable [phone] Allergies No Known Allergies REASON FOR VISIT possible pulled muscle left forearm Medications Medication SIG (Take, Route, Frequency, Duration) Notes Start Date End Date Status Atorvastatin Calcium 40 MG 1 tab(s) oral ly once a day; Duration: 90 days Active amLODIPine Besylate 2.5 MG Take 1 tablet by mouth once daily; Duration: 90 Active hydroCHLOROthiazide 12.5 MG 1 capsule in the morning Orally Once a day; Duration: 90 days 03/17/2024 Active Pantoprazole Sodium 40 MG 1 tab(s) orall y once a day; Duration: 90 days Active Cetirizine HCl 10 MG 1 tab(s) orally onc e a day; Duration: 90 days Active Lisinopril 10 MG 1 tab(s) orally At Bed Time; Duration: 90 days Active Lisinopril 30 MG Take 1 tablet by mouth once daily; Duration: 90 Active Fluticasone Propionate 50 MCG/ACT 1 spray(s) in each nostril Two times a day; Duration: 90 days Active Potassium 99 MG 1 tablet Orally Once a day; Duration: 30 day(s) Active Glucosamine & Fish Oil 448-652-55-40 MG 3 cap(s) orally once a day Active Meloxicam 15 MG 1 tablet Orally Once a day; Duration: 30 day(s) 03/31/2023 Active Vital Signs Blood pressure systolic 126 mm Hg 07/12/20 24 Blood pressure diastolic 80 mm Hg 024 Heart Rate 58 /min 07/12/2024 Height 63 in 07/12/2024 Weight 205.8 lbs 07/12/2024 BMI 36.45 kg/m2 07/12/2024 Encounters Encounter Location Date Provider Diagnosis [facility] [address] [place] [id number] 07/12/2024 Hector Nair Muscle strain of lef t forearm, initial encounter S56.912A Assessments Encounter Date Diagnosis (ICD Code) Assessment Notes Treatment Notes Treatment Clinical Notes Section Notes 07/12/2024 Muscle strain of left forearm, initial encounter (ICD-10 - S56.912A) Rest, ice, compression and elevation, Home exercise program provided to patient Plan Of Treatment Treatment Notes Assessment Notes Muscle strain of left forear m, initial encounter Rest, ice, compression and elevation, Ho me exercise program provided to patient Next Appt Details Follow Up: via phone to repo rt progress, Reason: Progress Notes * ZEFERINO MANCINIEDOB:1960 (65 yo M)Acc No.[id number]:07/12/2024 Progress Notes Patient: HAYDEE GAINES Provider: Devin Nair M.D. :1960 A ge:64 Y S ex:Male Date:07/12/2024 Address:[address] [place] [address] [id number] Subjective: * Chief Complaints: * 1 . Possible pulled muscle left forearm. * HPI: E lbow/Arm: 64 year old male presents with c/o pain P t complains of lt forearm pain that started last night. Pt states he was using a shovel and heard a pop in his arm.? * ROS: D ERMATOLOGY: no R austin. n o H stanley. G ASTROENTEROLOGY: no N ausea. n o V omiting. U ROLOGY: no D ifficulty urinating. n o B lood in urine. * Medical History: H ypertension, Hyperlipidemia, Hiatal Hernia, Esophageal Reflux, Allergic Rhinitis, Kidney Stones, Testosterone Deficiency, Carpal Tunnel Syndrome. * Surgical History: C olonoscopy, Normal 2014. * Hospitalization/Major Diagno stic Procedure: D [...] day , Taking Glucosamine & Fish Oil 139-250-97-40 MG Capsule 3 cap(s) orally once a [...] tablet by mouth once daily , Taking hydroCHLOROthiazide 12.5 MG Capsule 1 capsule in the morning Orally Once a day , Discontinued Montelukast Sodium 10 MG Tablet 1 tablet Orally Once a day , Discontinued Promethazine-DM 6.25-15 MG/5ML Syrup 5 ml as needed Orally every 6 hrs , Medication List reviewed and reconciled with the patient * Allergies: N .K.D.A. Objective: * Vitals: W t:205.8, Temp:98.1, BP:126/80, HR:58, Nurse:tommy, Ht: 63, BMI:36.45. * Examination: G eneral Examination: General Appearance: N AD. E lbow/Arm: Elbow: left. I nspection: m inimal edema and bruising over the proximal, flexor surface of the forearm. R shirley of motion: n ormal flexion and extension, minimal pain with resisted wrist extension. Assessment: * Assessment: 1. M uscle strain of left forearm, initial encounter - Z92.603J (Primary) Plan: * Treatment: * Follow Up: v ia phone to report progress * Images: Billing Information: * Visit Code: 55684 Office Visit, Est Pt., Level 3. * Procedure Codes: * Electronic signature of Claudine Nair MD on 07/14/2025 at 10:41 AM EDT Sign off status: Pending * Provider: Devin Nair M.D. Date: Generated for Mansoor davalos/Fidelia/Gunnarsmitting on: 09/13/2024 10:41 AM EDT History and Physical Notes * HPI (History of Present Illness) Category Sub-Category Detail Notes Category Not es Elbow/Arm pain Pt complains of lt forearm pain that started last night. Pt states he was using a shovel and heard a pop in his arm Examination Category Sub-Category Detail Notes Category Not es General Examination General Appearance: NAD Elbow/Arm Elbow: left Inspection: minimal edema and br uising over the proximal, flexor surface of the forearm Range of motion: normal flexion and e xtension, minimal pain with resisted wrist extension
--- OUTSIDE RECORDS SUMMARY | 2024-09-14 10:30 | XMS_ITS ---
[facility] Address [address] [place] [id number] Care Team Providers Care Machine Tank Operator Name Role Phone Hector Nair Unavailable [phone] Saul Georgiana Woodall Unavailable [phone] Allergies No Known Allergies Results Component Value Reference Range Notes CBC Fingerstick (in house) Reviewed date:09/15/2024 11:24:57 AM Interpretation: Performing Lab: Notes/Report: wbc 9.3 3.5 - 10 lym 32.6% 15 - 50 mid 6.9% 2 - 15 gran 60.5% 35 - 80 rbc 4.78 3.5 - 5.5 hgb 15.0 11.5 - 16.5 hct 44.0 35 - 55 mcv 91.9 75 - 100 mch 31.5 25 - 35 mchc 34.2 31 - 38 plat 154 100 - 400 REASON FOR VISIT [facility] f/u Medications Medication SIG (Take, Route, Frequency, Duration) Notes Start Date End Date Status amLODIPine Besylate 5 MG 1 tablet Orally Once a day; Duration: 90 days Active hydroCHLOROthiazide 12.5 MG 1 capsule in the morning Orally Once a day; Duration: 90 days 03/17/2024 Active Aspirin Adult Low Dose 81 MG 1 tablet Or ally Once a day; Duration: 90 days 08/02/2024 Active Cetirizine HCl 10 MG 1 tab(s) orally onc e a day; Duration: 90 days Active Pantoprazole Sodium 40 MG 1 tab(s) orall y once a day; Duration: 90 days Active Lisinopril 10 MG 1 tab(s) orally At Bed Time; Duration: 90 days Active Atorvastatin Calcium 40 MG 1 tab(s) oral ly once a day; Duration: 90 days Active Lisinopril 30 MG Take 1 tablet by mouth once daily; Duration: 90 Active methylPREDNISolone 4 MG as directed Orally 025 Active Promethazine-DM 6.25-15 MG/5ML 5-10 ml O rally every 6 hrs prn 09/14/2024 Active Meloxicam 15 MG 1 tablet Orally Once a day; Duration: 30 day(s) 03/31/2023 Active Glucosamine & Fish Oil 374-146-30-40 MG 3 cap(s) orally once a day Active Fluticasone Propionate 50 MCG/ACT 1 spray(s) in each nostril Two times a day; Duration: 90 days Active Potassium 99 MG 1 tablet Orally Once a day; Duration: 30 day(s) Active Cefdinir 300 MG as directed Orally Active Benzonatate 100 MG 1 capsule as needed Orally Three times a day Active Vital Signs Blood pressure systolic 130 mm Hg 09/14/19 25 Blood pressure diastolic 80 mm Hg 025 Heart Rate 64 /min 09/14/2024 Height 63 in 09/14/2024 Weight 209.8 lbs 09/14/2024 BMI 37.16 kg/m2 09/14/2024 Encounters Encounter Location Date Provider Diagnosis [facility] [address] [id number] 09/14/2024 R Jose C Hughes Acute bronchitis J20 .9 Assessments Encounter Date Diagnosis (ICD Code) Assessment Notes Treatment Notes Treatment Clinical Notes Section Notes 09/14/2024 Acute bronchitis (ICD-10 - J20.9) Finish course of cefdinir Plan Of Treatment Medication Medication Name Sig Start Date Stop Date Notes methylPREDNISolone 4 MG as directed Orally 09/14/2024 Promethazine-DM 6.25-15 MG/5ML 5-10 ml O rally every 6 hrs prn 09/14/2024 Treatment Notes Assessment Notes Acute bronchitis Finish course of cef dinir Next Appt Details Follow Up: prn, Reason: Progress Notes * JOHNNIE MANCINIOB:1960 (65 yo M)Acc No.[id number]:09/14/2024 Progress Notes Patient: HAYDEE GAINES Provider: Georgiana Hughes M.D. :1960 A ge:64 Y S ex:Male Date:09/14/2024 Address:[address] [address] [place] Subjective: * Chief Complaints: * 1 . [facility] f/u. * HPI: E NT/respiratory: 64 year old male presents with c/o cough P t complains of mostly dry without any sputum production cough since 09/06. Pt was seen at [facility] 09/10 and dx with Bronchitis. Pt rx'd abx and steroid dose pack. Pt states he has completed steroid and is still taking abx. Pt states cough has improved a little bit but he is concerned about getting pneumonia. * ROS: D ERMATOLOGY: no R austin. [...] no. Alcohol: no. * Medications: T aking Benzonatate 100 MG Capsule 1 capsule as needed Orally Three times a day , Taking Cefdinir 300 MG Capsule as directed Orally , Taking Potassium 99 MG Tablet 1 tablet Orally Once a day , Taking Glucosamine & Fish Oil 291-467-08-40 MG Capsule 3 cap(s) orally once a day , Taking Meloxicam 15 MG Tablet 1 tablet Orally Once a day , Taking Fluticasone Propionate 50 MCG/ACT Suspension 1 spray(s) in each nostril Two times a day , Taking Lisinopril 10 MG [...] tablet Orally Once a day , Taking Aspirin Adult Low Dose 81 MG Tablet Delayed Release 1 tablet Orally Once a day , Taking Pantoprazole Sodium 40 MG Tablet Delayed Release 1 tab(s) orally once a day , Taking Cetirizine HCl 10 MG Tablet 1 tab(s) orally once a day , Medication List reviewed and reconciled with the patient * Allergies: N .K.D.A. Objective: * Vitals: W t:209.8, Temp:97.8, BP:130/80, HR:64, O2 Sat:96% on RA, Nurse:tommy, Ht: 63, BMI:37.16. * Examination: E NT/Respiratory: General Appearance: N AD. Voice is slightly hoarse.?Ears: a uditory canals normal bilaterally, TM's WNL. N ose : n ormal, no lesions, nares patent. O ral cavity : mild erythema of throat. L ungs: F ew upper airway rhonchi, no rales or wheezes. Assessment: * Assessment: 1. A cute bronchitis - J20.9 (Primary) Plan: * Treatment: Value Reference Range w bc 9.3 3.5 - 10 * l ym 32.6% 15 - 50 * m id 6.9% 2 - 15 * g ran 60.5% 35 - 80 * r bc 4.78 3.5 - 5.5 * h gb 15.0 11.5 - 16.5 * h ct 44.0 35 - 55 * m cv 91.9 75 - 100 * m ch 31.5 25 - 35 * m chc 34.2 31 - 38 * p lat 154 100 - 400 * Valerie Garcia 09/14/2024 2:23:54 PM > , Provider reviewed results while patient in office. Notes: Finish course of cefdinir?? * Procedure Codes: [address] [place], [address] CAPILLARY BLOOD DRAW, 59590 CBC WITH AUTO DIFF * Follow Up: p rn * Images: Billing Information: * Visit Code: 14080 Office Visit, Est Pt., Level 4. * Procedure Codes: [address] [place]. [address] CAPILLARY BLOOD DRAW. 21478 CBC WITH AUTO DIFF. * Electronic signature of Georgiana Hughes MD on 07/14/2025 at 10:43 AM EDT Sign off status: Pending * Provider: Georgiana Hughes M.D. Date: 0 09/14/2024 Generated for Printi ng/Faxing/eTransmitting on: 09/13/2024 10:43 AM EDT History and Physical Notes * HPI (History of Present Illness) Category Sub-Category Detail Notes Category Not es ENT/respiratory cough Pt complains of mostly dry without any sputum production cough since 09/06. Pt was seen at [facility] 09/10 and dx with Bronchitis. Pt rx'd abx and steroid dose pack. Pt states he has completed steroid and is still taking abx. Pt states cough has improved a little bit but he is concerned about getting pneumonia Examination Category Sub-Category Detail Notes Category Not es ENT/Respiratory Oral cavity : mild erythema of throat Ears: auditory canals norm al bilaterally, TM's WNL Lungs: Few upper airway rho nchi, no rales or wheezes General Appearance: NAD. Voice is slight ly hoarse Nose : normal, no lesions, nares patent
--- OUTSIDE RECORDS SUMMARY | 2024-09-22 11:30 | XMS_ITS ---
Author Organization [facility] Address [address] [place] [phone] Care Team Providers Care Marketing Recruiter Name Role Phone Hector Niar Unavailable [phone] Allergies No Known Allergies Results Component Value [...] 250 MG as directed Orall y once daily; Duration: 5 day(s) 09/22/2024 Active methylPREDNISolone 4 MG as directed Orally 025 Not-Taking Promethazine-DM 6.25-15 MG/5ML 5-10 ml Orally every 6 hrs prn 09/14/2024 Active Atorvastatin Calcium 40 MG 1 tab(s) oral ly once a day; Duration: 90 days Active Pantoprazole Sodium 40 MG 1 tab(s) orall y once a day; Duration: 90 days Active Aspirin Adult Low Dose 81 MG 1 tablet Or ally Once a day; Duration: 90 days 08/02/2024 Active amLODIPine Besylate 5 [...] day(s) 03/31/2023 Active Glucosamine & Fish Oil 764-561-72-40 MG 3 cap(s) orally once a day Active Lisinopril 30 MG Take 1 tablet by mouth once daily; Duration: 90 Active Lisinopril 10 MG 1 tab(s) orally At Bed Time; Duration: 90 days Active Potassium 99 MG 1 tablet Orally Once a day; Duration: 30 day(s) Active Vital Signs Blood pressure systolic 126 mm Hg 09/22/19 25 Blood pressure diastolic 80 mm Hg 025 Heart Rate 84 /min 09/22/2024 Height 63 in 09/22/2024 Weight 208.2 lbs 09/22/2024 BMI 36.88 kg/m2 09/22/2024 Encounters Encounter Location Date Provider Diagnosis [facility] [address] [phone] 09/22/2024 Hector Nair Acute URI J06.9 Assessments Encounter Date Diagnosis (ICD Code) Assessment Notes Treatment Notes Treatment Clinical Notes Section Notes 09/22/2024 Acute URI (ICD-10 - J06.9) Plan Of Treatment Medication Medication Name Sig Start Date Stop Date Notes Zithromax Z-Chandler 250 MG as directed Orall y once daily; Duration: 5 day(s) 09/22/2024 Next Appt Details Follow Up: prn, Reason: Progress Notes * AMARI MANCINI:1960 (65 yo M)Acc No.[id number]:09/22/2024 Progress Notes Patient: HAYDEE GAINES Provider: Devin Nair M.D. :1960 A ge:64 Y S ex:Male Date:09/22/2024 Address:[address] [place] [address] [place], [id number] Subjective: * Chief Complaints: * 1 . [...] day , Taking Glucosamine & Fish Oil 992-087-77-40 MG Capsule 3 cap(s) orally once a [...] * Vitals: W t:208.2, Temp:97.9, BP:126/80, HR:84, Nurse:BERENICE, Ht: 63, BMI:36.88. * Examination: E NT/Respiratory: General Appearance: N AD. E yes: P ERRLA, sclera clear. E ars: a uditory canals normal bilaterally, TM's WNL. O ral cavity : erythema without exudate on pharynx. N thiago : n o cervical lymphadenopathy. H eart : R RR, normal S1 S2. L ungs: c lear to auscultation bilaterally. Assessment: * Assessment: 1. Woody mcfadden URI - J06.9 (Primary) Plan: * Treatment: [...] Procedure Codes: 3 6416 CAPILLARY BLOOD DRAW, 68753 CBC WITH AUTO DIFF * Follow Up: p rn * Images: Billing Information: * Visit Code: 73084 Office Visit, Est Pt., Level 3. * Procedure Codes: 94088 CAPILLARY BLOOD DRAW. 01515 CBC WITH AUTO DIFF. * Electronic signature of Claudine Nair MD on 07/14/2025 at 10:42 AM EDT Sign off status: Pending * Provider: Devin Nair M.D. Date: 0 09/22/2024 Generated for Mansoor davalos/Faxing/eTransmitting on: 1 09/13/2024 10:42 AM EDT History and Physical Notes [...]
--- OUTSIDE RECORDS SUMMARY | 2024-10-02 05:15 | XMS_ITS ---
[facility] Address [address] [place] [phone] Care Team Providers Care Field Sales Executive Name Role Phone Hector Nair Unavailable [phone] Allergies No Known Allergies Results Component Value Reference Range Notes CBC Fingerstick (in house) Reviewed date:10/02/2024 12:37:09 PM Interpretation: Performing Lab: Notes/Report: wbc 5.8 3.5 - 10 lym 35.3 15 - 50 mid 6.6 2 - 15 gran 58.1 35 - 80 rbc 5.19 3.5 - 5.5 hgb 16.0 11.5 - 16.5 hct 48.1 35 - 55 mcv 92.5 75 - 100 mch 30.8 25 - 35 mchc 33.3 31 - 38 plat 123 100 - 400 REASON FOR VISIT check up Medications Medication SIG (Take, Route, Frequency, Duration) Notes Start Date End Date Status Pantoprazole Sodium 40 MG 1 tab(s) orall [...] a day; Duration: 90 days 03/17/2024 Active Atorvastatin Calcium 40 MG 1 tab(s) oral ly once a day; Duration: 90 days Active Lisinopril 30 MG Take 1 tablet by mouth once daily; Duration: 90 Active Lisinopril 10 MG 1 tab(s) orally At Bed Time; Duration: 90 days Active Fluticasone Propionate 50 MCG/ACT 1 spray(s) in each nostril Two times a day; Duration: 90 days Active Meloxicam 15 MG 1 tablet Orally Once a day; Duration: 30 day(s) 03/31/2023 Active Glucosamine & Fish Oil 614-046-71-40 MG 3 cap(s) orally once a day Active Potassium 99 MG 1 tablet Orally Once a day; Duration: 30 day(s) Active Benzonatate 100 MG 1 capsule as needed Orally Three times a day Active Vital Signs Blood pressure systolic 124 mm Hg 10/02/19 25 Blood pressure diastolic 78 mm Hg 025 Heart Rate 60 /min 10/02/2024 Height 63 in 10/02/2024 Weight 205.2 lbs 10/02/2024 BMI 36.35 kg/m2 10/02/2024 Encounters Encounter Location Date Provider Diagnosis [facility] [address] [place] [phone] 10/02/2024 Hector Nair Persistent cough R05 .3 Assessments Encounter Date Diagnosis (ICD Code) Assessment Notes Treatment Notes Treatment Clinical Notes Section Notes 10/02/2024 Persistent cough (ICD-10 - R05.3) WBC count is normal now Plan Of Treatment Treatment Notes Assessment Notes Persistent cough WBC count is normal now Next Appt Details Follow Up: prn, Reason: Progress Notes * ZEFERINO MANCINIEDOB:1960 (65 yo M)Acc No.[id number]:10/02/2024 Progress Notes Patient: HAYDEE GAINES Provider: Devin Nair M.D. :1960 A ge:64 Y S ex:Male Date:10/02/2024 Address:[address] [place] [address] [address] [id number] Subjective: * Chief Complaints: * 1 . Check up. * HPI: H PI: 64 year old male presents with c/o Patient is here today for?Pt is here today for a f/u on his Bronchitis. He is feeling better. * ROS: D ERMATOLOGY: no R austin. [...] day , Taking Glucosamine & Fish Oil 975-854-03-40 MG Capsule 3 cap(s) orally once a [...] Allergies: N .K.D.A. Objective: * Vitals: W t:205.2, Temp:97.7, BP:124/78, HR:60, Nurse:BERENICE, Ht: 63, BMI:36.35. * Examination: E NT/Respiratory: General Appearance: N AD. E yes: P ERRLA, sclera clear. O ral cavity : n o erythema or exudate seen on pharynx. N thiago : n o cervical lymphadenopathy. H eart : R RR, normal S1 S2. L ungs: c lear to auscultation bilaterally. Assessment: * Assessment: 1. P ersistent cough - R05.3 (Primary) Plan: * Treatment: Value Reference Range w bc 5.8 3.5 - 10 * l ym 35.3 15 - 50 * m id 6.6 2 - 15 * g ran 58.1 35 - 80 * r bc 5.19 3.5 - 5.5 * h gb 16.0 11.5 - 16.5 * h ct 48.1 35 - 55 * m cv 92.5 75 - 100 * m ch 30.8 25 - 35 * m chc 33.3 31 - 38 * p lat 123 100 - 400 * Erin Davis 10/02/2024 9:41: 35 AM > , Provider reviewed results while patient in office. Notes: WBC count is normal now?? * Procedure Codes: 3 6416 CAPILLARY BLOOD DRAW, [address]2964 CBC WITH AUTO DIFF * Follow Up: p rn * Images: Billing Information: * Visit Code: 46075 Office Visit, Est Pt., Level 3. * Procedure Codes: 01297 CAPILLARY BLOOD DRAW. 21908 CBC WITH AUTO DIFF. * Electronic signature of Claudine Nair MD on 07/14/2025 at 10:41 AM EDT Sign off status: Pending * Provider: Devin Nair M.D. Date: 0 10/02/2024 Generated for Mansoor davalos/Fidelia/eTransmitting on: 1 09/13/2024 10:41 AM EDT History and Physical Notes * HPI (History of Present Illness) Category Sub-Category Detail Notes Category Not es HPI Patient is here today for Pt is here today for a f/u on his Bronchitis. He is feeling better Examination Category Sub-Category Detail Notes Category Not es ENT/Respiratory Oral cavity : no erythema or exudate s een on pharynx Neck : no cervical lymphade nopathy Heart : RRR, normal S1 S2 Lungs: clear to auscultatio n bilaterally General Appearance: NAD Eyes: PERRLA, sclera clear
--- OUTSIDE RECORDS SUMMARY | 2024-12-16 17:30 | XMS_ITS ---
Author Organization [facility] Address [address] [place] [address] Care Team Providers Care Landscaper Name Role Phone TarunCarlton Primary Care Provider Migration, Provider Unavailable Unavailable [facility]ISIT [facility] Encounter Medications Medication SIG (Take, Route, Frequency, Duration) Notes Start Date End Date Status amLODIPine Besylate 2.5 MG 1 tab(s) orally once a day; Duration: 90 Active Pantoprazole Sodium 40 MG 1 tab(s) orally once a day; Duration: 90 Active SUDAFED 24-HOUR 240 MG 1 TAB(S) ORALLY ONCE A DAY; Duration: 90 DAYS *Please review for potential replacement for e-prescription and drug interaction check* Active Fluticasone Propionate 50 MCG/ACT 1 spray(s) in each nostril 2 times a day; Duration: 90 days 07/31/2021 Active Lisinopril 10 MG 1 tab(s) orally twice a day; Duration: 90 days Active Lisinopril 2.5 MG 1 tab(s) orally once a day; Duration: 90 Active Atorvastatin Calcium 40 MG 1 tab(s) orally once a day; Duration: 90 Active Sudafed 30 MG 1-2 tab(s) orally twice daily; Duration: 30 day(s) Active Potassium 99 BID once a day QOD *Please review and pick correct strength-formulatio n from Medispan options. If intended option is not shown, discontinue and re-order from Quick Search* Active Magnesium 400MG 1 TABLET BID QOD *Please revi ew and pick correct strength-formulatio n from Medispan options. If intended option is not shown, discontinue and re-order from Quick Search* Active Encounters Encounter Location Date Provider Diagnosis [facility] [address] [facility] [address] [place] [address] 12/16/2024 Provider Migration Plan Of Treatment Medication Medication Name Sig Start Date Stop Date Notes Lisinopril 10 MG 1 tab(s) orally twic e a day; Duration: 90 days Lisinopril 2.5 MG 1 tab(s) orally once a day; Duration: 90 Atorvastatin Calcium 40 MG 1 tab(s) oral ly once a day; Duration: 90 Sudafed 30 MG 1-2 tab(s) orally tw ice daily; Duration: 30 day(s) Progress Notes * [place] YOSTeDOB:1960 (65 yo M)Acc No.[id number]:12/16/2024 Patient: Rick GAINES Provider: Naila patel Migration :1960 A ge:64 Y S ex:Male Date:12/16/2024 Address:[address] [place] [address] [id number] Pcp:Carlton Mcneil Subjective: * [...] Treatment: * * Electronic signature of Prov candacer Migration on 07/14/2025 at 10:41 AM EDT Sign off status: Pending * Provider: Naila patel Migration Date: 0 12/16/2024 Generated for Mansoor davalos/Fidelia/Deb on: 1 09/13/2024 10:41 AM EDT
--- OUTSIDE RECORDS SUMMARY | 2024-12-29 12:15 | XMS_ITS ---
[facility] [address] [place] [phone] Care Team Providers Care Pipe Buffer Name Role Phone Hector Nair Unavailable [phone] Allergies No Known Allergies Reason For Referral Diagnosis 1 Testosterone deficie ncy in male (E29.1) Referral Organization [facility] Referring Provider First Name Hector Referring Provider Last Name Korey Referring Provider Speciality Family Pra ctice Referred Provider Luis Orellana Referred Provider Specialty Urology General Notes Savanna Donnelly 2024 09:57:48 AM > faxed to Dr. Orellana's office Referral Priority Routine REASON FOR VISIT wants to talk about heart test and bw Medications Medication SIG (Take, Route, Frequency, Duration) Notes Start Date End Date Status hydroCHLOROthiazide 12.5 MG TAKE 1 CAPSU LE BY MOUTH IN THE MORNING ONCE DAILY; Duration: 90 Active Atorvastatin Calcium 40 MG Take 1 tablet by mouth once daily; Duration: 90 Active Fluticasone Propionate 50 MCG/ACT Use 1 spray(s) in each nostril twice daily; Duration: 90 Active Lisinopril 10 MG 1 tab(s) orally At Bed Time; Duration: 90 days Active Lisinopril 30 MG Take 1 tablet by mouth once daily; Duration: 90 Active Pantoprazole Sodium 40 MG 1 tab(s) orall y once a day; Duration: 90 days Active Glucosamine & Fish Oil 378-682-98-40 MG 3 cap(s) orally once a day Active Meloxicam 15 MG 1 tablet Orally Once a day; Duration: 30 day(s) 03/31/2023 Active amLODIPine Besylate 5 MG 1 tablet Orally Once a day; Duration: 90 days Active Aspirin Adult Low Dose 81 MG 1 tablet Or ally Once a day; Duration: 90 days 08/02/2024 Active Potassium 99 MG 1 tablet Orally Once a day; Duration: 30 day(s) Active Problems Problem Type SNOMED Code ICD Code Onset Dates Problem Status W/U Status Risk Notes Problem Testicular hypofunction (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) Testosterone deficiency in male (E29.1) Active confirmed Vital Signs Blood pressure systolic 130 mm Hg 12/30/19 25 Blood pressure diastolic 82 mm Hg 025 Heart Rate 72 /min 12/29/2024 Height 63 in 12/29/2024 Weight 202 lbs 12/29/2024 BMI 35.78 kg/m2 12/29/2024 Encounters Encounter Location Date Provider Diagnosis [facility] [address] [place] [phone] 12/29/2024 Hector Nair Testosterone deficie ncy in male E29.1 Assessments Encounter Date Diagnosis (ICD Code) Assessment Notes Treatment Notes Treatment Clinical Notes Section Notes 12/29/2024 Testosterone deficiency in male (ICD-10 - E29.1) Plan Of Treatment Referrals Referral Date Details 12/29/2024 12/29/2024, Luis Polo Appt Details Follow Up: via phone to repo rt progress, Reason: Progress Notes * ZEFERINO MANCINIEDOB:1960 (65 yo M)Acc No.[id number]:12/29/2024 Progress Notes Patient: HAYDEE GAINES Provider: Devin Nair M.D. :1960 A ge:64 Y S ex:Male Date:12/29/2024 Address:[address] [place] [address] [id number] Subjective: * Chief Complaints: * 1 . Wants to talk about heart test and bw. * HPI: H PI: 64 year old male presents with c/o Here for follow up on: 0 12/16/2024 cardiology appt. Pt states he would like to discuss lab results, see pt docs. * ROS: D ERMATOLOGY: no R austin. [...] day , Taking Glucosamine & Fish Oil 270-987-72-40 MG Capsule 3 cap(s) orally once a day , Taking Meloxicam 15 MG Tablet 1 tablet Orally Once a day , Taking amLODIPine Besylate 5 MG Tablet 1 tablet Orally Once a day , Taking Aspirin Adult Low Dose 81 MG Tablet Delayed Release 1 tablet Orally Once a day , Taking Pantoprazole Sodium 40 MG Tablet Delayed Release 1 tab(s) orally once a day , Taking Fluticasone Propionate 50 MCG/ACT Suspension Use 1 spray(s) in each nostril twice daily , Taking Lisinopril 10 MG Tablet 1 tab(s) orally At Bed Time , Taking Lisinopril 30 MG Tablet Take 1 tablet by mouth once daily , Taking Atorvastatin Calcium 40 MG Tablet Take 1 tablet by mouth once daily , Taking hydroCHLOROthiazide 12.5 MG Capsule TAKE 1 CAPSULE BY MOUTH IN THE MORNING ONCE DAILY , Discontinued Benzonatate 100 MG Capsule 1 capsule as needed Orally Three times a day , Medication List reviewed and reconciled with the patient * Allergies: N .K.D.A. Objective: * Vitals: W t: 202, Temp: 97.8, BP: 130/82, HR: 72, Nurse: tommy, Ht: 63, BMI:35.78. * Examination: G eneral Examination: General Appearance: N AD. Assessment: * Assessment: 1. T estosterone deficiency in male - E29.1 (Primary) Plan: * Treatment: * Procedure Codes: 3 075F SYST BP GE 130 - 139MM HG, 3079F DIAST BP 80-89 MM HG * Follow Up: v ia phone to report progress * Images: Billing Information: * Visit Code: 07925 Office Visit, Est Pt., Level 3. * Procedure Codes: 3075F SYST BP GE 130 - 139MM HG. 3079F DIAST BP 80-89 MM HG. * Electronic signature of Claudine Nair MD on 07/14/2025 at 10:41 AM EDT Sign off status: Pending * Provider: Devin Nair M.D. Date: 0 12/29/2024 Generated for Mansoor davalos/Fidelia/eTransmitting on: 1 09/13/2024 10:41 AM EDT History and Physical Notes * HPI (History of Present Illness) Category Sub-Category Detail Notes Category Not es HPI Here for follow up on: cardiology appt. Pt states he would like to discuss lab results, see pt docs Examination Category Sub-Category Detail Notes Category Not es General Examination General Appearance: NAD Consultation Request Notes Referral Date Referring Provider Referred Provider Not es 12/29/2024 Hector Nair Kevin
--- OUTSIDE RECORDS SUMMARY | 2025-07-14 10:41 | XMS_ITS | Continuity of Care Document ---
Author Organization [facility] Address [address] [address] Care Team Providers Care Customer Data Technician Name Role Phone SHILOH NAIR Primary Care Provider [phone] Assessment Encounter Date Assessment Date Assessment LastModified by Organization Details LastModified Time 05/17/2025 05/17/2025 ASSESSMENT: Rick Yost is a 65-year-old male with symptoms of fatigue and prior testosterone therapy. PLAN: 1. Initiate clomiphene therapy at a dose of 50 mg, with instructions to take half a tablet daily for ease of compliance. 2. Order laboratory tests to be performed two months from now, including hormone levels (testosterone, estradiol), hematocrit, hemoglobin, liver enzymes, and PSA. 3. Advise the patient to complete blood work at least one week prior to the follow-up visit to allow sufficient time for hormone level results to be processed. 4. Schedule a follow-up appointment in two months to review lab results and assess the effectiveness of clomiphene therapy. 5. Provide counseling on potential side effects of clomiphene, including rare visual floaters, and advise the patient to report any concerns. Please note this report was created using voice recognition/text compilation software documentation services during the encounter with the patient. [email or web address] Not available 05/17/2025 16:28:17 Plan of Treatment Reminders Order Date Submit Date Provider Last Modified By Organization Details Last Modified Time Details Appointments OV EST 15 2024 04:15P Hayden KIMBROUGH MD Not available Not available Not available Lab CBC 2024 025 [facility] (Lab), [address], [place], [address], 07/12/2025 15:24:27 CMP, serum or plasma 2024 025 [facility] (Lab), [address], [place], [address], 07/12/2025 15:19:24 estradiol , serum [address] (Lab), [address], [place], [address], 07/12/2025 15:15:45 testoster one, free + total, serum [address] (Lab), [address], [place], [address], 07/12/2025 15:15:57 PSA, total, serum or plasma 2024 025 [facility] (Lab), [address], [place], [address], 07/12/2025 15:18:14 Referral None recorded. Procedures None recorded. Surgeries None recorded. Imaging None recorded. Medication Orders clomiphen e citrate 50 mg tablet 2024 025 [facility], [address] [facility] [address] [place], [address], 05/17/2025 16:29:05 Patient TargetsNo targets recorded. Patient InstructionsNo instructions recorded. Reason for Referral None Reported. Problems Name Problem SNOMED Code Status Onset Date Resolution Date Notes Provider Name and Address Organization Details Recorded Time Fatigue 98619332 Active 2024 AUGUSTIN KIMBROUGH MD [address] [facility], [place], [address] , [facility] & [place] 15:39:16 Male hypogonadism 70259004 Active 2024 AUGUSTIN KIMBROUGH MD [address] [facility], [place], [address] , [facility] & [place] 16:28:03 Problem Notes None recorded. Procedures Surgical History Date Name Laterality Status Provider Name and Address Organization Details Recorded Time 09/13/1993 Other completed Melvina Rouse [facility] & [place] 04/19/2025 14:48:02 Imaging Results None recorded. Procedure Notes None recorded. Medical Equipment None Reported. Allergies No known drug allergies Medications Name Sig Start Date Stop Date Status Note LastModified by Organization Details LastModified Time atorvasta tin 40 mg tablet TAKE 1 TABLET BY MOUTH ONCE DAILY active Not Available Not Available No t Available promethaz ine-DM 6.25 mg-15 mg/5 mL oral syrup TAKE 5 TO 10 ML BY MOUTH EVERY 6 HOURS NEEDED 02/13 completed Not Available Not Available Not Available cetirizin e 10 mg tablet TAKE 1 TABLET BY MOUTH ONCE DAILY active Not Available Not Available No t Available azithromy robby 250 mg tablet TAKE 2 TABLETS BY MOUTH ON DAY 1, AND THEN TAKE 1 TABLET BY MOUTH ONCE A DAY ON DAY 2 THROUGH DAY 5 02/13 completed Not Available Not Available Not Available acetazola mide 125 mg tablet TAKE 1 TABLET BY MOUTH TWICE DAILY 05/17 completed Not Available Not Available Not Available clomiphen e citrate 50 mg tablet TAKE 1/2 (ONE-BREONNA F) TABLET BY MOUTH ONCE DAILY active Not Available Not Available No t Available ondansetr on HCl 8 mg tablet TAKE 1 TABLET BY MOUTH EVERY 8 HOURS 02/13 completed Not Available Not Available Not Available prednison e 20 mg tablet TAKE 1 TABLET BY MOUTH TWICE DAILY FOR 4 DAYS 02/13 completed Not Available Not Available Not Available amlodipin e 2.5 mg tablet TAKE 1 TABLET BY MOUTH ONCE DAILY active Not Available Not Available No t Available amlodipin e 5 mg tablet TAKE 1 TABLET BY MOUTH ONCE DAILY active Not Available Not Available No t Available aspirin 81 mg tablet,de layed release TAKE 1 TABLET BY MOUTH ONCE DAILY active Not Available Not Available No t Available oxycodone -acetamin ophen 5 mg-325 mg tablet TAKE 1 TABLET BY MOUTH EVERY 8 HOURS NEEDED FOR PAIN 02/13 completed Not Available Not Available Not Available benzonata te 100 mg capsule TAKE 1 CAPSULE BY MOUTH THREE TIMES DAILY NEEDED FOR COUGH 02/13 completed Not Available Not Available Not Available pantopraz ole 40 mg tablet,de layed release TAKE 1 TABLET BY MOUTH ONCE DAILY active Not Available Not Available No t Available lisinopri l 10 mg tablet TAKE 1 TABLET BY MOUTH AT BEDTIME active Not Available Not Available No t Available hydrochlo rothiazid e 12.5 mg capsule TAKE 1 CAPSULE BY MOUTH IN THE MORNING active Not Available Not Available No t Available lisinopri l 30 mg tablet TAKE 1 TABLET BY MOUTH ONCE DAILY active Not Available Not Available No t Available monteluka st 10 mg tablet TAKE 1 TABLET BY MOUTH ONCE DAILY 02/13 completed Not Available Not Available Not Available testoster one cypionate 200 mg/mL intramusc ular oil Inject 0.5 mL every 2 weeks by intramus cular route. 2024 active Patient tolerate d injectio n well without issues, left side (AW) Not Available Not Available Not Available methylpre dnisolone 4 mg tablets in a dose pack TAKE BY MOUTH DIRECTED ON INSIDE OF PACKAGE 02/13 completed Not Available Not Available Not Available cefdinir 300 mg capsule TAKE 1 CAPSULE BY MOUTH TWICE DAILY 02/13 completed Not Available Not Available Not Available fluticaso ne propionat e 50 mcg/actua tion nasal spray,shahzad pension USE 1 SPRAY(S) IN EACH NOSTRIL TWICE DAILY FOR 90 DAYS active Not Available Not Available No t Available testoster one cypionate 200 mg/mL intramusc ular kit Inject 0.5 mL every 2 weeks by intramus cular route. active Not Available Not Available No t Available Vitals Date Recorded Body height Body mass index (BMI) Body weight Oxygen saturation Oxygen saturation in Arterial blood by Pulse oximetry Heart rate Systolic And Diastolic Provider Name and Address Organization Details Last Updated DateTime 5 160.02 cm 37.2 kg/m2 79792.1 2 g 96 % 96 % 67 /min 150/98 mm[Hg] Jen Lerma [place] - [facility] - [place] & [place] 5 16:20:35 Social History Question Answer Notes LastModified by Organizat ion Details LastModified Time Tobacco Smoking Status Former Smoker Melvina Rouse [facility], [place] - [facility] & [place] 04/19/2025 14:47:57 Do You Have An Advance Directive? No [email or web address] Information not available 04/19/2025 Are You Blind Or Do You Have Difficulty Seeing? No [email or web address] Information not available 04/19/2025 Are You Passively Exposed To Smoke? No [email or web address] Information not available 04/19/2025 Sex: Unknown Functional Status Question Answer Note LastModified by Organizat ion Details LastModified Time Do you use any illicit or recreational drugs? No [email or web address] Information not available 04/19/2025 What is your exercise level? Heavy [email or web address] Information not available 04/19/2025 Mental Status None recorded. Family History Relationship Description Onset Age of this Age Resolved Age Notes LastModified by Organization Details LastModified Time Mother Hypertensive disorder tyler [email or web address] Not available 02/13/2025 15:29:10 Father Heart disease tyler [place] Not available 02/13/2025 15:29:20 Medical History Condition Response Vision or Eye Problems Y Arthritis Y High Cholesterol Y Back Problems Y Hypertension Y GI Problems Y Past Encounters Encounter ID Performer Location Encounter Start Date Encounter Closed Date Diagnosis/Indication Diagnosis SNOMED-CT Code Diagnosis ICD10 Code Diagnosis IMO Codes Diagnosis Note [id number] AUGUSTIN KIMBROUGH MD [facility] [address] [facility] [address] [place] [address] 04/19/2025 14:12:28 04/19/2025 15:16:06 Fatigue 26645480 R53.83 [id number] AUGUSTIN KIMBROUGH MD [facility] [address] [facility] [address] [place] [address] 05/10/2025 15:59:57 05/10/2025 16:38:32 Male hypogonadism 19033539 E29.1 76915329 [id number] AUGUSTIN KIMBROUGH MD [facility] 00 [address] [facility] [address] [place] [address] 05/17/2025 16:12:31 05/17/2025 16:29:25 Male hypogonadism 60986438 E29.1 [id number] Health Concerns Section Related Observation LastModified by Organization Detai ls LastModified Time None Recorded Concern Status LastModified by Organization Details LastModified Time None Recorded Payers Encounter Date Sequence Insurance Name Policy Number Policy Aguayo Covered Member ID Aguayo Member ID Guarantor Name 05/17/2025 1 [employer] [id number] Rick Yost [id number] Rick Yost Notes Date Note Type Note Provider Name and Address Organization Details Recorded Time 05/17/2025 text/html 05/17/25 Patient returns to my office follow up to assess patients response to testosterone therapy after 3rd injection.Rick Yost is a 65-year-old male who presents for a follow-up visit. He has previously undergone three testosterone injections, with the understanding that they would not result in complete resolution of symptoms. He reports noticing a slight improvement in tiredness but no significant changes. He denies experiencing any negative effects or worsening symptoms. The patient inquired about alternative forms of testosterone therapy, including oral medications and topical options. The provider discussed clomiphene, an oral anti-estrogen medication that stimulates the body to produce more of its own testosterone. The provider explained that clomiphene is generally well-tolerated, with rare side effects such as visual floaters, which are harmless and resolve upon discontinuation of the medication. Other risks associated with testosterone therapy, such as elevated hematocrit, hemoglobin, liver enzyme levels, and PSA, were reviewed. The patient expressed interest in trying clomiphene and agreed to proceed with this treatment. The provider recommended taking half of a 50 mg tablet daily for ease of compliance. Plans were made to check labs in two months to monitor hormone levels and other relevant parameters. - 05/10/25 Patient here for 3rd testosterone injection. 04/19/25 05/10/25Patient here for 2nd testosterone injection. --------- 04/05/25 Patient here for 1st testosterone injection. ----- 02/27/25 Tele visit to discuss lab results. Rick Yost is a 64-year-old male who presents for a telephonic visit. The patient's total testosterone level has improved slightly compared to two months ago in December, now measuring 350 ng/dL, which is considered low normal by some labs and normal by others. Free testosterone remains low at 5.9 ng/dL. Prolactin and estrogen levels were evaluated for secondary causes and are both within normal limits. The patient previously received testosterone injections administered by his family physician after picking up the prescription. He does not feel comfortable self-administering injections. --- 02/13/25620101-joec-awh-hayden danielle referred to my office for testosterone deficiency in male.Rick Yost is a 64-year-old male who presents for a new patient visit regarding low testosterone. He has a history of receiving testosterone injections approximately two to three years ago under the care of Dr. Palomino at [facility]. The injections were administered every two weeks or monthly, but the treatment was discontinued after a few months. He has not been on testosterone therapy since then. Dr. Nair, his subsequent provider, did not favor testosterone treatment due to concerns about cardiovascular risks.Symptoms prior to initiating testosterone therapy included fatigue and decreased energy levels. Despite being an active individual who exercises daily and works in a factory for 36 years, he noticed a decline in energy over the past three to four years. He denies issues with libido, erectile function, or sleep disturbances.He reports a low resting heart rate, described as a runner's heart, typically in the 40s to 50s, which increases appropriately during exercise. He denies any difficulty with urination, weak stream, or straining but notes increased frequency of urination, including waking once or twice at night depending on fluid intake. There is no family history of prostate issues or prostate cancer. 02/17/25 Total T 350.6, T free 5.9, Estradiol 24.4, Prolactin 4.706 Cr 0.80, GFR 119, Hgb 14.6, Hct 43.704 T free 4.5, Total T 293.9, Cortisol AM 15.8 AUGUSTIN KIMBROUGH MD [address], [place], [address], [facility] - [place] & [place] 05/22/2025 07:44:20
--- OUTSIDE RECORDS SUMMARY | 2025-07-14 10:41 | XMS_ITS | Data Portability ---
Author Organization [place] [facility] [place] Address [address] [place] [id number] Care Team Providers Care Merchandise Manager Name Role Phone SHILOH GRIJALVA Primary Care Provider Assessment Encounter Date Assessment [...] two weeks. [email or web address] Not available 02/13/2025 15:41:38 02/27/2025 02/27/2025 ASSESSMENT: Rick Yost is a 64-year-old male with low free testosterone levels. PLAN: 1. I recommend initiating testosterone therapy with 100 mg injections every two weeks. 2. I propose administering the first three injections in the office to ensure proper technique and patient comfort. 3. I will schedule a follow-up visit one week after the third injection to assess the patient's response to therapy. 4. I will have the office contact the patient to arrange the injection schedule. [email or web address] Not available 02/27/2025 16:41:39 05/17/2025 05/17/2025 ASSESSMENT: Rick Yots is a 65-year-old male with symptoms of [...] available Not available [facility] [address], [place], [address], 07/12/2025 15:24:27 CMP, serum or plasma [facility] [address], [place], [address], 07/12/2025 15:19:24 estradiol , serum [address] (Lab), [address], [place], [address], 07/12/2025 15:15:45 testoster one, free + total, serum 2024 025 [email or web address] [facility] (Lab), [address], [place], [address], 07/12/2025 15:15:57 PSA, total, serum or plasma 2024 025 [email or web address] [facility] (Lab), [address], [place], [address], 07/12/2025 15:18:14 testoster one, free + total, w/ shbg, serum 2024 025 [email or web address] [facility] (Lab), [address], [place], [address], 02/21/2025 14:00:49 estradiol , serum 2024 025 [email or web address] [facility] (Lab), [address], [place], [place], [address], 02/21/2025 14:00:49 prolactin , serum 2024 025 [email or web address] [facility] (Lab), [address], [place], [address], 02/21/2025 14:00:49 PSA, serum or plasma 2024 025 [email or web address] [facility] (Lab), [address], [place], [address], 02/21/2025 14:00:49 [facility] [address], [place], [address], 02/17/2025 14:11:25 CMP, serum or plasma 2024 025 [email or web address] [facility] (Lab), [address], [place], [address], 02/21/2025 14:00:49 Referral None recorded. Procedures None recorded. Surgeries None recorded. Imaging None recorded. Medication Orders clomiphen e citrate 50 mg tablet 2024 025 [facility], [address], [place], [address], 05/17/2025 16:29:05 testoster one cypionate 200 mg/mL intramusc ular oil [address] [facility], [address], [place], [address], 05/29/2025 12:50:44 testoster one cypionate 200 mg/mL intramusc ular oil [address] [facility], [address], [place], [address], 05/07/2025 08:35:39 Patient TargetsNo targets recorded. Patient InstructionsNo instructions recorded. Reason for Referral None Reported. Results Created Date Observation Date Name Description Value Unit Range Abnormal Flag Note LastModifiedBy Organization Detail LastModifiedTime Result Notes None recorded. Problems Name Problem SNOMED Code Status Onset Date Resolution Date Notes Provider Name and Address Organization Details Recorded Time Fatigue 15526680 Active [address], [place], [address] , [facility] [place] [facility] [place] 15:39:16 Male hypogonadism 34464717 Active [address], [place], [address] , [place] [facility] & [place] 16:28:03 Problem Notes None recorded. Procedures Surgical History Date Name Laterality Status Provider Name and Address Organization Details Recorded Time 09/13/1993 Other completed Melvina Rouse [place] - [facility] & [place] 04/19/2025 14:48:02 Imaging Results None recorded. Procedure [...] Last Updated DateTime 160.02 cm 35.6 kg/m2 74527.0 7 g 98 % 98 % 61 /min 128/74 mm[Hg] Therese Allen [place] - [facility] & [place] 15:28:30 Date Recorded Body height Body mass index (BMI) Body weight Provider Name and Address Organization Details Last Updated DateTime 04/19/2025 160.02 cm 35.6 kg/m2 37929.07 g Melvina VERDE - [facility] & [place] 04/19/2025 14:47:46 Date Recorded Body height Body mass index (BMI) Body weight Oxygen saturation Oxygen saturation in Arterial blood by Pulse oximetry Heart rate Systolic And Diastolic Provider Name and Address Organization Details Last Updated DateTime 160.02 cm 37.2 kg/m2 44063.1 2 g 96 % 96 % 67 /min 150/98 mm[Hg] Jen VERDE - [facility] & [place] 16:20:35 Social History Question Answer Notes LastModified by [employer] Details LastModified Time Tobacco Smoking Status Former Smoker Melvina hernandes, [place] [facility] [place] 04/19/2025 14:47:57 Do You Have An Advance Directive? No [email or web address] Information not available 04/19/2025 Are You Blind Or Do You Have Difficulty Seeing? No Information not available 04/19/2025 Are You Passively Exposed To Smoke? No [email or web address] Information not available 04/19/2025 Sex: Unknown Functional Status Question Answer Note LastModified by [employer] Details LastModified Time Do you use any illicit or recreational drugs? No [email or web address] Information not available 04/19/2025 What is your exercise level? Heavy [email or web address] Information not available 04/19/2025 Mental Status None recorded. Family History Relationship Description Onset Age of this Age Resolved Age Notes LastModified by Organization Details LastModified Time Mother Hypertensive disorder tyler Not available 02/13/2025 15:29:10 Father Heart disease tyler Not available 02/13/2025 15:29:20 Medical History Condition Response Vision or Eye Problems Y Arthritis Y Back Problems Y Hypertension Y GI Problems Y High Cholesterol Y Past Encounters Encounter ID Performer Location Encounter Start Date Encounter Closed Date Diagnosis/Indication Diagnosis SNOMED-CT Code Diagnosis ICD10 Code Diagnosis IMO Codes Diagnosis Note [id number] AUGUSTIN KIMBROUGH MD [facility] Urology-[address] [place] [address] 02/13/2025 15:21:30 02/13/2025 15:44:10 Fatigue 48417719 R53.83 0718410 [id number] AUGUSTIN KIMBROUGH MD [facility] Urology-1 00 [address] [facility] [address] [place] [address] 02/27/2025 16:11:12 02/27/2025 16:47:32 Fatigue 51861810 R53.83 [id number] AUGUSTIN KIMBROUGH MD [facility] Urology-1 00 [address] [facility] 100 [place] [id number] 04/19/2025 14:12:28 04/19/2025 15:16:06 Fatigue 58133679 R53.83 4732817 [id number] AUGUSTIN KIMBROUGH MD [facility] Urology-[address] [address] 05/10/2025 15:59:57 05/10/2025 16:38:32 Male hypogonadism 94039125 E29.1 51498457 [id number] AUGUSTIN KIMBROUGH MD [facility] Urology- [address] [address] 05/17/2025 16:12:31 05/17/2025 16:29:25 Male hypogonadism 90179653 E29.1 70408719 Health Concerns Section Related Observation LastModified by Organization Detai ls LastModified Time None Recorded Concern Status LastModified by Organization Details LastModified Time None Recorded Advance Directives Directive N: Payers Insurance Date Sequence Insurance Name Policy Number Policy Aguayo Covered Member ID Aguayo Member ID Guarantor Name 05/22/2025 1 [place] [id number] Rick Yost [id number] Rick Devin Priyank Notes Date Note Type Note Provider Name and Address Organization Details Recorded Time 02/13/2025 text/html ROS as noted in the HPI 02/13/25 [id number] referred to my office for testosterone deficiency in male. Rick Yost is a 64-year-old male who presents for a new patient visit regarding low testosterone. He has a history of receiving testosterone injections approximately two to three years ago under the care of Dr. Palomino at [facility]. The injections were administered every two weeks or monthly, but the treatment was discontinued after a few months. He has not been on testosterone therapy since then. Dr. Grijalva, his subsequent provider, did not favor testosterone [...] 293.9, Cortisol AM 15.8 AUGUSTIN KIMBROUGH MD [address] [facility], [place], [address], [facility] - [place] [facility] & [place] 02/13/2025 16:27:23 02/27/2025 text/html 02/27/25 Tele visit to discuss lab results. [...] does not feel comfortable self-administering injections. --- 02/13/25626215-casi-jww-hayden santos referred to my office for testosterone deficiency in male.Rick Yost is a 64-year-old male who presents for a new patient visit regarding low testosterone. He has a history of receiving testosterone injections approximately two to three years ago under the care of Dr. Palomino at [facility]. The injections were administered every two weeks or monthly, but the treatment was discontinued after a few months. He has not been on testosterone therapy since then. Dr. Grijalva, his subsequent provider, did not favor testosterone [...] 350.6, T free 5.9, Estradiol 24.4, Prolactin 4.706/04/06 Cr 0.80, GFR 119, Hgb 14.6, Hct 43.704/02/04 T free 4.5, Total T 293.9, Cortisol AM 15.8 AUGUSTIN KIMBROUGH MD [address], [place], [address], [facility] - [facility] & [place] 03/02/2025 07:39:46 05/10/2025 text/html 05/10/25 Patient here for testosterone injection. MD [address], [place], [address], [facility] - [facility] & [place] 05/29/2025 12:50:47 05/17/2025 text/html 05/17/25 Patient returns to my [...] does not feel comfortable self-administering injections. --- 02/13/25625404-blhc-tqi-m danielle referred to my office for testosterone deficiency in male.Rick Yost is a 64-year-old male who presents for a new patient visit regarding low testosterone. He has a history of receiving testosterone injections approximately two to three years ago under the care of Dr. Palomino at [facility]. The injections were administered every two weeks or monthly, but the treatment was discontinued after a few months. He has not been on testosterone therapy since then. Dr. Grijalva, his subsequent provider, did not favor testosterone [...] 350.6, T free 5.9, Estradiol 24.4, Prolactin 4.7002/17/25 Cr 0.80, GFR 119, Hgb 14.6, Hct 43.7012/16/24 T free 4.5, Total T 293.9, Cortisol AM 15.8 AUGUSTIN KIMBROUGH MD [address], [place], [address], [facility] & [place] 05/22/2025 07:44:20
--- OUTSIDE RECORDS SUMMARY | 2025-07-14 10:41 | XMS_ITS | Patient Health Record ---
[facility] [address] [place] [id number] Care Team Providers Care Flat Bed Operator Name Role Phone Hector Nair Unavailable [phone] Georgiana Hughes Unavailable [phone] Allergies No Known Allergies Results Component Value [...] - 400 CBC Fingerstick (in house) Reviewed date:09/22/2024 04:24:44 [...] - 400 CBC Fingerstick (in house) Reviewed date:09/15/2024 11:24:57 [...] - 38 plat 154 100 - 400 Reason For Referral Diagnosis 1 Testosterone deficie ncy in male (E29.1) Referral Organization [facility] Referring Provider First Name Hector Referring Provider Last Name Korey Referring Provider Speciality Family [facility] ctice Referred Provider Luis Orellana Referred Provider Specialty Urology General Notes Savanna Donnelly 2024 09:57:48 AM > faxed to Dr. Orellana's office Referral Priority Routine Medications Medication SIG (Take, Route, Frequency, Duration) Notes Start Date End Date Status Potassium 99 MG 1 tablet Orally Once a day; Duration: 30 day(s) Active amLODIPine Besylate 5 MG 1 tablet Orally Once a day; Duration: 90 days Active Fluticasone Propionate 50 MCG/ACT Use 1 spray(s) in each nostril twice daily; Duration: 90 Active Lisinopril 30 MG Take 1 tablet by mouth once daily; Duration: 90 Active Glucosamine & Fish Oil 660-212-32-40 MG 3 cap(s) orally once a day Active Meloxicam 15 MG 1 tablet Orally Once a day; Duration: 30 day(s) 03/31/2023 Active acetaZOLAMIDE 125 MG 1 tablet Orally Twi ce a day; Duration: 15 days 04/11/2025 Active EQ Aspirin Adult Low Dose 81 MG Take 1 t ablet by mouth once daily; Duration: 90 Active Lisinopril 10 MG 1 tablet Orally At Bed Time; Duration: 90 days Active Atorvastatin Calcium 40 MG Take 1 tablet by mouth once daily; Duration: 90 Active EQ Allergy Relief (Cetirizin e) 10 MG Take 1 tablet by mouth once daily; Duration: 90 Active Pantoprazole Sodium 40 MG Take 1 tablet by mouth once daily; Duration: 90 Active hydroCHLOROthiazide 12.5 MG Take 1 capsu le by mouth in the morning; Duration: 90 Active Immunizations Vaccine Route Administration Date Status [...] Problem Status W/U Status Risk Notes Problem Essential hypertension (67408186) Essential (primary) hypertension (I10) Active confirmed Problem Hyperlipidaemia (29682951) Hyperlipidemia, unspecified hyperlipidemia type (E78.5) Active confirmed Problem Carpal tunnel syndrome of left wrist (925959732045812) Carpal tunnel syndrome of left wrist (G56.02) Active confirmed Problem Sciatica (35978524) Acute right- sided low back pain with right-sided sciatica (M54.41) Active confirmed Problem Testicular hypofunction (190769149) Testosterone deficiency in male (E29.1) Active confirmed Problem Allergic rhinitis (16895592) Allergic rhinitis, unspecified seasonality, unspecified trigger (J30.9) Active confirmed Problem Gastroesophageal reflux disease (603525383) Gastroesophageal reflux disease, unspecified whether esophagitis present (K21.9) Active confirmed Problem Primary hypertension (70752869) Primary hypertension (I10) Active confirmed Vital Signs Heart Rate 72 /min 12/29/2024 Blood pressure diastolic 82 mm Hg 12/29/2024 Height 63 in 12/29/2024 Blood pressure systolic 130 mm Hg 12/29/2024 Weight 202 lbs 12/29/2024 BMI 35.78 kg/m2 12/29/2024 Encounters Encounter Location Date Provider Diagnosis [facility] [address] [place], [place] [id number] 09/14/2024 R Jose C Hughes Acute bronchitis J20 .9 [facility] [address] [place], [place] [id number] 09/22/2024 Hector Arlington Acute URI J06.9 [facility] [address] [place], [place] [id number] 10/02/2024 Hector Arlington Persistent cough R05 .3 [facility] [address] [place] [id number] 12/29/2024 Hector Arlington Testosterone deficie ncy in male E29.1 [facility] [address] [place] [id number] 07/25/2024 Hector Arlington [facility] [address] [place] [id number] 08/02/2024 Hector Arlington [facility] [address] [place] [id number] 10/23/2024 Hector Arlington [facility] [address] [place] [id number] 01/23/2025 Hector Arlington [facility] [address] [place] [id number] 04/10/2025 Hector Arlington Assessments Encounter Date Diagnosis (ICD Code) Assessment Notes Treatment Notes Treatment Clinical Notes Section Notes 12/29/2024 Testosterone deficiency in male (ICD-10 - E29.1) 10/02/2024 Persistent cough (ICD-10 - R05.3) WBC count is normal now 09/22/2024 Acute URI (ICD-10 - J06.9) 09/14/2024 Acute bronchitis (ICD-10 - J20.9) Finish course of cefdinir Plan Of Treatment No Information Insurance Providers Payer Name Payer Address Payer Phone Subscriber Number Group Number Insured Name Patient Relationship to Insured Coverage Start Date Coverage End Date [employer] [address] [place] [address] [id number] LINDSAY Self - patient is the insured Medical (General) History Medical History History ICD Code Hypertension Hyperlipidemia Hiatal Hernia Esophageal Reflux Allergic Rhinitis Kidney Stones Testosterone Deficiency Carpal Tunnel Syndrome Surgical History Surgery Date(Month/Year) Colonoscopy, Normal 2014
--- OUTSIDE RECORDS SUMMARY | 2025-07-14 10:43 | XMS_ITS | Clinical Summary ---
Author Organization [facility] Address [address] [place] [address] Phone [email or web address] Care Team Providers Care Cotton Classer Name Role Phone Unavailable Primary Care Provider [...] Health Maintenance Due Date Last Done Comments CT Colonography 1962 Colonoscopy 1962 Colorectal Cancer Screening Combo 1962 DNA Cologuard 1962 Dental Cleaning/Exam 1962 FIT or FOBT Test 1962 HIV Screening 1962 Hepatitis C Screening 1962 Sigmoidoscopy 1962 Annual Preventive Exam 1980 Hep B Infection Screening - Triple Screen 1980 Tetanus Diphtheria and Pertussis Immunization (1 - Tdap) 11/17/1996 11/16/1996 Pneumococcal: 50+ Years (1 of 1 - PCV) 2012 Covid-19 Immunization (2 - season) 2025 12/18/2020 Influenza Immunization (#1) 05/14/202506/13, 06/17/2022, 07/02/2021, Additional history exists Hepatitis A [...]
[2025-07-14 11:08] LABS: Hematocrit 45.9 % (42.0-52.0); Hemoglobin 15.8 g/dL (14.1-18.0); Immature Granulocytes % 0.5 %; Mean Corpuscular HGB Conc 34.4 g/dL (31.8-35.4); Mean Corpuscular Hemoglobin 30.9 pg (27.0-31.2); Mean Corpuscular Volume 89.6 fl (80-94); Nucleated Red Blood Cells % 0 %; Platelet Count 133 K/mm3 (142-424); Red Blood Count 5.12 M/mm3 (4.60-6.20); Red Cell Distribution Width-SD 41.5 fL; White Blood Count 6.5 K/mm3 (4.8-10.8)
[2025-07-14 11:32] LABS: Alanine Aminotransferase 38 U/L (12-78); Albumin Level 4.0 g/dl (3.5-5.0); Albumin/Globulin Ratio 1.3 (1.1-1.8); Alkaline Phosphatase 73 U/L (38-126); Anion Gap 9.4 mEq/L (5-15); Aspartate Amino Transferase 33 U/L (17-59); Bilirubin,Total 0.9 mg/dl (0.2-1.3); Blood Urea Nitrogen 26 mg/dl (9-20); Calcium 9.4 mg/dl (8.4-10.2); Carbon Dioxide 27 mmol/L (22.0-30.0); Chloride 105 mmol/L (98-107); Creatinine,Serum 0.90 mg/dl (0.66-1.25); Estimated Glomerular Filt Rate 85 ml/min (>60); GFR (African American) 103 ML/MIN (>60); Globulin 3.2 g/dL (1.3-3.2); Glucose 96 mg/dl (74-100); Potassium 4.4 mmoL/L (3.5-5.1); Sodium 137 mmol/L (136-145); Total Protein,Serum 7.2 g/dl (6.3-8.2)
[2025-07-16 12:16] LABS: Testosterone,Total 404 ng/dL (264-916)
== END 2025-07-14 23:59 | disposition home or self-care (01) ==
LOC: LAB 10:39
PROVIDERS: PCP Internal Medicine Adolescent Medicine; Visit Provider Urology
DX: E29.1 Testicular hypofunction (principal)
CPT/HCPCS: 36415; 80053; 82670; 84153; 84154; 84402; 84403; 85025